=== PATIENT | female | born 1965 | race Caucasian/White ===

== ENCOUNTER 2019-01-18 16:06 | Emergency (ER) | payer MEDICARE, SELFPAY ==
[2019-01-18] VITALS (27 sets, daily range): BP systolic 108–131; BP diastolic 63–89; PULSE 67–98; RESP 15–26; TEMP 36.6–37.3; O2SAT 95–99
--- NOTE | 2019-01-18 16:29 | W.ED.GENAD ---
Discharge Plan Disposition Patient Disposition: HOME Condition: Stable Discharge Details Chief Complaint: Palpitatns Clinical Impression: Paroxysmal supraventricular tachycardia Primary Care Provider: Damian Lindsey ED Provider: Teri Hopkins Home Meds and New Rx's Prescriptions: New diltiazem HCl 120 mg capsule,extended release 12 hr 120 mg PO QAM Qty: 14 RF: 0 Continued diltiazem HCl 120 MG capsule,extended release 24hr 240 mg PO DAILY Qty: 30 RF: 5 diltiazem HCl 30 MG tablet 30 mg PO PRN MDD 240 Qty: 30 RF: 3 gabapentin 400 MG capsule 400 mg PO DAILY RF: 0 venlafaxine 100 MG tablet 150 mg PO DAILY RF: 0 Discharge Instructions Instructions: Diltiazem (By mouth), Supraventricular Tachycardia (ED) Additional Instructions: Encourage hydration. Please continue with medications as previously prescribed. Begin the morning dose of Diltiazem as prescribed. Please follow up with cardiology in the next week for reevaluation and to discuss further care of your SVT as well as possible stress test. If you develop chest pain, difficulty breathing, shortness of breath or other new/worsening symptoms please seek care urgently once again. Referrals: Julius Marquez MD [MD CONSULTING PHYSICIAN] - Damian Lindsey NP [Primary Care Provider] - Discharge Data Discharge Date/Time-TO BE ENTERED AT DEPARTURE: 01/18/19 20:27 Medical Decision Making Patient is a 53-year-old female with history of paroxysmal SVT presenting today, accompanied by her , with chief complaint of palpitations. She reports the palpitations began at 2:00. States that she has been working outside in heat and went in to get something to drink. States that she opened the refrigerator when she has sudden onset of palpitations, feeling of racing heart, lightheadedness. States she took to diltiazem which typically works well for her when she has breakthrough SVT. However, despite this, she reports that her chest tightness has persisted. States that the feeling of palpitations have since resolved. Feels that her neck is stiff. Denies any recent illness. Patient was last seen in August 2016 by support services coordinator. She reports at that time they had discussed ablation but as she was undergoing treatment for colon cancer, decided to hold off at that time. She reports that she has been experiencing episodes of palpitations approximately twice per week for the past few months. Has not yet contacted her primary care or support services coordinator. EKG reviewed by Dr. Holman. NSR, rate 98 with no ischemic changes noted. Patient given aspirin Chest x-rays reviewed by radiologist and they advised no acute findings. No notable incidentals. Labs reviewed, notable for a potassium of 3.1. BUN is slightly elevated. Patient is receiving hydration. Will replenish potassium. Plan to repeat troponin. Consulted with Dr. Patino regarding the patient's breakthrough SVT. If patient would need a repeat Holter monitor and he advised against this. He advised that in addition to the patient's to 40 mg nightly dosing of diltiazem we had another 120 on top of this in the morning. Discussed this plan with the patient was in agreement. Plan for 3-hour troponin and repeat EKG Repeat troponin 0.04. while slightly elevated, this is still within normal limits. Discussed case with Dr. Gillis. Discussed symptoms, Dr. Marquez's recommendations and change in troponin. He advised this is likely d/t stress from episode of SVT. Given length of time since onset, advised no repeat troponin at this time. Ag is seen by cardiology. ADvised prompt f/u with them and +/- of stress testing at their discretion. Will prescribed 120mg of Diltiazem as advised by cardiology. Patient is able to return with recurrent/worsneing symptoms. She is feeling well at this time. We discussed red flags that should prompt urgent evaluation once again. All of her questions and concerns were addressed, she is in agreement with this plan. [facility] General Mode of arrival: ambulatory. Date/Time Provider Initiated Documentation: 01/18/19 16:29. Limitations to Documentation: no limitations. Information obtained by: patient and family (accompanied by ). History of Present Illness 53 year old F presents to the emergency department with the chief complaint of palpitations, described as mild, Quality is described as other (chest tightness, indicates anterior chest), and is localized to the chest. Patient reports no radiation. Patient started experiencing this hour(s) (1400) and it has been constant. No relieving factors improve symptom(s), No exacerbating factors reported . Patient notes chest pain (tightness, palpitations have resolved); denies confusion, cough, diaphoresis, fever/chills, headaches, malaise, nausea/vomiting, rash, shortness of breath, syncope (patient had experienced presyncope when symptoms initially began) and weakness. Patient did receive the following treatments prior to arrival, other (diltiazem x 2) Related Data Home Medications Medication Instructions Recorded Confirmed gabapentin 400 mg PO DAILY 10/26/14 01/18/19 venlafaxine 150 mg PO DAILY 10/26/14 01/18/19 diltiazem HCl 240 mg PO DAILY #30 tab-cap 12/22/15 01/18/19 diltiazem HCl 30 mg PO PRN #30 tab-cap MDD 240 10/31/17 01/18/19 diltiazem HCl 120 mg PO QAM #14 cap 01/18/19 Previous Rx's Medication Instructions Recorded diltiazem HCl 30 mg PO PRN #30 tab-cap MDD 240 10/31/17 diltiazem HCl 120 mg PO QAM #14 cap 01/18/19 Allergies Allergy/AdvReac Type Severity Reaction Status Date / Time Sulfa (Sulfonamide Allergy Intermediate Hives Unverified 01/18/19 16:24 Antibiotics) metoprolol AdvReac fatigue Unverified 01/18/19 16:24 General Stated Complaint: Palpitatns GARCIA: 2 Review of Systems Constitutional Reports as per HPI, Denies chills, Denies fever(s), Denies headache(s), Denies lethargy and Denies poor appetite Eyes Denies change in vision ENT Denies dizziness and Denies headache(s) Cardiovascular Reports as per HPI, Reports chest pain (constant chest tightness since onset of symptoms), Denies chest pain with activity, Denies syncope (had experienced presyncope when symptoms were at max), Reports rapid heart rate, Denies pedal edema, Reports irregular heart rhythm, Denies lightheadedness, Reports radiating jaw, neck or arm pain (feels that her neck is stiff), Reports palpitations, Denies dyspnea and Denies dyspnea on exertion Respiratory Reports as per HPI, Denies chest congestion, Denies cough, Denies pain on inspiration, Denies pain with cough, Denies dyspnea, Denies dyspnea on exertion and Denies wheezing Gastrointestinal Reports as per HPI, Denies abdominal pain, Denies diarrhea, Denies nausea and Denies vomiting Musculoskeletal Reports as per HPI and Denies back pain Integumentary/Breasts Reports as per HPI and Denies rash Neurologic Reports as per HPI, Denies dizziness, Denies syncope (had experienced presyncope when symptoms were at max) and Denies headache(s) Endocrine Reports palpitations Allergic/Immunologic Denies wheezing [facility] Social History Smoking/Tobacco Use Status: Former Tobacco Use Alcohol Intake: never Drug use: Never Do you feel safe at home: Yes Do you feel safe in your relationship?: Yes Exam Const General: cooperative, healthy appearing, comfortable, no acute distress and well developed Nutritional Appearance: average body habitus and well nourished Orientation: alert, awake and oriented x3 HENMT Head: normal to inspection Ears: hearing grossly normal bilaterally Mouth: moist mucous membranes Chest Chest: normal inspection of the chest, normal palpation of entire chest wall and no crepitus Resp Effort & Inspection: normal respiratory effort, able to speak in complete sentences and no respiratory distress Auscultation: clear to auscultation bilaterally, no rales, no rhonchi and no wheezes Cardio Rate: regular rate Rhythm: regular rhythm Heart Sounds: S1 normal and S2 normal GI Inspection: normal to inspection, no edema and non-distended Palpation: soft, no hepatosplenomegaly, not firm, no guarding, not rigid and nontender Auscultation: normal bowel sounds Back/Spine/Pelvis Back: no CVA tenderness Thoracic/Lumbar Spine: thoracic and lumbar spine normal to inspection Skin General skin exam: no rashes or lesions noted Trauma: no lacerations or abrasions Neuro General: alert, awake and oriented x3 Cognition: normal cognition Speech: speech normal Gait: normal gait Extrem General: normal to inspection, normal capillary refill, no pedal edema, no calf tenderness and normal gait Psych Appearance: grossly normal and well kempt Mental Status: mental status grossly normal Speech and Movement: speech and movement normal Course Vital Signs Temperature 37.3 C 01/18/19 16:12 Pulse 86 01/18/19 16:12 Respiratory Rate 25 H 01/18/19 16:12 Blood Pressure 131/78 01/18/19 16:12 Pulse Oximetry 97 01/18/19 16:12 Temperature 37.3 C 01/18/19 16:12 Temperature Source Skin 01/18/19 16:12 Pulse 86 01/18/19 16:12 Respiratory Rate 25 H 01/18/19 16:12 Respiratory Effort 01/18/19 16:27 Blood Pressure 131/78 01/18/19 16:12 Blood Pressure Position Supine 01/18/19 16:12 Pulse Oximetry 97 01/18/19 16:12 Oxygen Delivery Method Room Air 01/18/19 16:12 Oxygen Flow Rate 0 01/18/19 16:12 Pain Level 7 01/18/19 16:12
--- NOTE | 2019-01-18 16:47 | DI.RAD_ITS ---
SYMPTOM/DIAGNOSIS: CHEST TIGHTNESS, PALPITATIONS CHEST: PA and lateral. Comparison 10/26/14 The heart is normal in size. The lungs are clear. The mediastinal structures and pleura appear intact. CONCLUSION: Normal chest.
[2019-01-18] MEDS: Aspirin 325 MG TAB PO (16:53)
[2019-01-18] MEDS: Normal Saline Flush 10 ML SYR IVP (16:54)
[2019-01-18] MEDS: Normal Saline 1,000 ML 1000 ML IV (16:54)
[2019-01-18 16:57] LABS: Abs Immature Grans 0.01 k/cumm (0.0-0.09); Absolute Basophil Count 0.08 k/cumm (0.0-0.2); Absolute Eosinophil Count 0.21 k/cumm (0.0-0.7); Absolute Lymphocyte Count 2.04 k/cumm (1.2-3.4); Absolute Monocyte Count 0.53 k/cumm (0.11-0.7); Absolute Neutrophil Count 4.18 k/cumm (1.2-6.7); Basophils % 1.1; HCT 40.5 % (36.0-46.0); HGB 13.7 g/dL (12.0-15.5); Immature Grans % 0.1; Lymphocytes % 28.9; Mean Corp. HGB Concentration 33.8 g/dL (32.0-36.0); Mean Corpuscular Hemoglobin 29.3 pg (27.0-33.0); Mean Corpuscular Volume 86.7 fL (80-95); Mean Platelet Volume 11.9 fL (8.0-11.0); Monocytes % 7.5; Neutrophils % 59.4; Platelet Count 224 x1000/uL (130-400); RBC 4.67 m/cumm (4.00-5.20); RBC Distribution Width 13.3 % (11.7-14.6); White Blood Cell Count 7.05 k/cumm (4.4-10.8)
[2019-01-18 17:19] LABS: PTT Activated 24.6 sec (21.0-31.4); Prothrombin Time 10.1 sec (9.3-11.0)
[2019-01-18 17:22] LABS: ALT 36 U/L (12-78); AST 24 U/L (15-37); Albumin 3.6 g/dL (3.4-5.0); Alkaline Phosphatase 100 U/L (46-116); BUN 19 mg/dL (7-18); Bilirubin, Total 0.4 mg/dL (0.2-1.0); Calcium 9.5 mg/dL (8.5-10.1); Chloride 105 mmol/L (98-107); Glucose 82 mg/dL (70-100); Magnesium 1.9 mg/dL (1.8-2.4); Potassium 3.1 mmol/L (3.5-5.1); Sodium 142 mmol/L (136-145); TSH 3.45 uIU/mL (0.358-3.74); Total Protein 7.3 g/dL (6.4-8.2); Troponin I < 0.02 ng/mL (0.00-0.06)
--- NOTE | 2019-01-18 17:27 | ED.GENADUL_ITS ---
Discharge Plan Disposition Patient Disposition: HOME Condition: Stable Discharge Details Chief Complaint: Palpitatns Clinical Impression: Paroxysmal supraventricular tachycardia Primary Care Provider: Damian Lindsey ED Provider: Teri Hopkins Home Meds and New Rx's Prescriptions: New diltiazem HCl 120 mg capsule,extended release 12 hr 120 mg PO QAM Qty: 14 RF: 0 Continued diltiazem HCl 120 MG capsule,extended release 24hr 240 mg PO DAILY Qty: 30 RF: 5 diltiazem HCl 30 MG tablet 30 mg PO PRN MDD 240 Qty: 30 RF: 3 gabapentin 400 MG capsule 400 mg PO DAILY RF: 0 venlafaxine 100 MG tablet 150 mg PO DAILY RF: 0 Discharge Instructions Instructions: Diltiazem (By mouth), Supraventricular Tachycardia (ED) Additional Instructions: Encourage hydration. Please continue with medications as previously prescribed. Begin the morning dose of Diltiazem as prescribed. Please follow up with cardiology in the next week for reevaluation and to discuss further care of your SVT as well as possible stress test. If you develop chest pain, difficulty breathing, shortness of breath or other new/worsening symptoms please seek care urgently once again. Referrals: Julius Marquez MD [MD CONSULTING PHYSICIAN] - Damian Lindsey NP [Primary Care Provider] - Discharge Data Discharge Date/Time-TO BE ENTERED AT DEPARTURE: 01/18/19 20:27 Medical Decision Making Patient is a 53-year-old female with history of paroxysmal SVT presenting today, accompanied by her , with chief complaint of palpitations. She reports the palpitations began at 2:00. States that she has been working outside in heat and went in to get something to drink. States that she opened the refrigerator when she has sudden onset of palpitations, feeling of racing heart, lightheadedness. States she took to diltiazem which typically works well for her when she has breakthrough SVT. However, despite this, she reports that her chest tightness has persisted. States that the feeling of palpitations have since resolved. Feels that her neck is stiff. Denies any recent illness. Patient was last seen in August 2016 by paymaster of purses. She reports at that time they had discussed ablation but as she was undergoing treatment for colon cancer, decided to hold off at that time. She reports that she has been experiencing episodes of palpitations approximately twice per week for the past few months. Has not yet contacted her primary care or paymaster of purses. EKG reviewed by Dr. Holman. NSR, rate 98 with no ischemic changes noted. Patient given aspirin Chest x-rays reviewed by radiologist and they advised no acute findings. No notable incidentals. Labs reviewed, notable for a potassium of 3.1. BUN is slightly elevated. Patient is receiving hydration. Will replenish potassium. Plan to repeat troponin. Consulted with Dr. Patino regarding the patient's breakthrough SVT. If patient would need a repeat Holter monitor and he advised against this. He advised that in addition to the patient's to 40 mg nightly dosing of diltiazem we had another 120 on top of this in the morning. Discussed this plan with the patient was in agreement. Plan for 3-hour troponin and repeat EKG Repeat troponin 0.04. while slightly elevated, this is still within normal limits. Discussed case with Dr. Gillis. Discussed symptoms, Dr. Marquez's rec ommendations and change in troponin. He advised this is likely d/t stress from episode of SVT. Given length of time since onset, advised no repeat troponin at this time. Ag is seen by cardiology. ADvised prompt f/u with them and +/- of stress testing at their discretion. Will prescribed 120mg of Diltiazem as advised by cardiology. Patient is able to return with recurrent/worsneing symptoms. She is feeling well at this time. We discussed red flags that should prompt urgent evaluation once again. All of her questions and concerns were addressed, she is in agreement with this plan. [facility] General Mode of arrival: ambulatory . Date/Time Provider Initiated Documentation: 01/18/19 16:29 . Limitations to Documentation: no limitations . Information obtained by: patient and family (accompanied by ) . History of Present Illness 53 year old F presents to the emergency department with the chief complaint of palpitations, described as mild, Quality is described as other (chest tightness, indicates anterior chest), and is localized to the chest. Patient reports no radiation. Patient started experiencing this hour(s) (1400) and it has been constant. No relieving factors improve symptom(s), No exacerbating factors reported . Patient notes chest pain (tightness, palpitations have resolved); denies confusion, cough, diaphoresis, fever/chills, headaches, malaise, nausea/vomiting, rash, shortness of breath, syncope (patient had experienced presyncope when symptoms initially began) and weakness. Patient did receive the following treatments prior to arrival, other (diltiazem x 2) Related Data Home Medications Medication Instructions Recorded Confirmed gabapentin 400 mg PO DAILY 10/26/14 01/18/19 venlafaxine 150 mg PO DAILY 10/26/14 01/18/19 diltiazem HCl 240 mg PO DAILY #30 tab-cap 12/22/15 01/18/19 diltiazem HCl 30 mg PO PRN #30 tab-cap MDD 240 10/31/17 01/18/19 diltiazem HCl 120 mg PO QAM #14 cap 01/18/19 Previous Rx's Medication Instructions Recorded diltiazem HCl 30 mg PO PRN #30 tab-cap MDD 240 10/31/17 diltiazem HCl 120 mg PO QAM #14 cap 01/18/19 Allergies Allergy/AdvReac Type Severity Reaction Status Date / Time Sulfa (Sulfonamide Allergy Intermediate Hives Unverified 01/18/19 16:24 Antibiotics) metoprolol AdvReac fatigue Unverified 01/18/19 16:24 General Stated Complaint: Palpitatns GARCIA: 2 Review of Systems Constitutional Reports as per HPI, Denies chills, Denies fever(s), Denies headache(s), Denies lethargy and Denies poor appetite Eyes Denies change in vision ENT Denies dizziness and Denies headache(s) Cardiovascular Reports as per HPI, Reports chest pain (constant chest tightness since onset of symptoms), Denies chest pain with activity, Denies syncope (had experienced presyncope when symptoms were at max), Reports rapid heart rate, Denies pedal edema, Reports irregular heart rhythm, Denies lightheadedness, Reports radiating jaw, neck or arm pain (feels that her neck is stiff), Reports palpitations, Denies dyspnea and Denies dyspnea on exertion Respiratory Reports as per HPI, Denies chest congestion, Denies cough, Denies pain on inspiration, Denies pain with cough, Denies dyspnea, Denies dyspnea on exertion and Denies wheezing Gastrointestinal Reports as per HPI, Denies abdominal pain, Denies diarrhea, Denies nausea and Denies vomiting Musculoskeletal Reports as per HPI and Denies back pain Integumentary/Breasts Reports as per HPI and Denies rash Neurologic Reports as per HPI, Denies dizziness, Denies syncope (had experienced presyncope when symptoms were at max) and Denies headache(s) Endocrine Reports palpitations Allergic/Immunologic Denies wheezing [facility] Social History Smoking/Tobacco Use Status: Former Tobacco Use Alcohol Intake: never Drug use: Never Do you feel safe at home: Yes Do you feel safe in your relationship?: Yes Exam Const General: cooperative, healthy appearing, comfortable, no acute distress and well developed Nutritional Appearance: average body habitus and well nourished Orientation: alert, awake and oriented x3 HENMT Head: normal to inspection Ears: hearing grossly normal bilaterally Mouth: moist mucous membranes Chest Chest: normal inspection of the chest, normal palpation of entire chest wall and no crepitus Resp Effort & Inspection: normal respiratory effort, able to speak in complete sentences and no respiratory distress Auscultation: clear to auscultation bilaterally, no rales, no rhonchi and no wheezes Cardio Rate: regular rate Rhythm: regular rhythm Heart Sounds: S1 normal and S2 normal GI Inspection: normal to inspection, no edema and non-distended Palpation: soft, no hepatosplenomegaly, not firm, no guarding, not rigid and nontender Auscultation: normal bowel sounds Back/Spine/Pelvis Back: no CVA tenderness Thoracic/Lumbar Spine: thoracic and lumbar spine normal to inspection Skin General skin exam: no rashes or lesions noted Trauma: no lacerations or abrasions Neuro General: alert, awake and oriented x3 Cognition: normal cognition Speech: speech normal Gait: normal gait Extrem General: normal to inspection, normal capillary refill, no pedal edema, no calf tenderness and normal gait Psych Appearance: grossly normal and well kempt Mental Status: mental status grossly normal Speech and Movement: speech and movement normal Course Vital Signs Temperature 37.3 C 01/18/19 16:12 Pulse 86 01/18/19 16:12 Respiratory Rate 25 H 01/18/19 16:12 Blood Pressure 131/78 01/18/19 16:12 Pulse Oximetry 97 01/18/19 16:12 Temperature 37.3 C 01/18/19 16:12 Temperature Source Skin 01/18/19 16:12 Pulse 86 01/18/19 16:12 Respiratory Rate 25 H 01/18/19 16:12 Respiratory Effort 01/18/19 16:27 Blood Pressure 131/78 01/18/19 16:12 Blood Pressure Position Supine 01/18/19 16:12 Pulse Oximetry 97 01/18/19 16:12 Oxygen Delivery Method Room Air 01/18/19 16:12 Oxygen Flow Rate 0 01/18/19 16:12 Pain Level 7 01/18/19 16:12
--- NOTE | 2019-01-18 17:28 | DI.VRAD_ITS ---
EXAM: XR Chest, 2 Views EXAM DATE/TIME: 01/18/2019 4:48 PM CLINICAL HISTORY: 53 years old, female; Signs and symptoms; Other: Palpitations TECHNIQUE: Imaging protocol: XR of the chest, 2 views. COMPARISON: CR ABD FLAT UPRIGHT PA CHEST 10/26/2014 11:13 PM FINDINGS: Lungs: Unremarkable. No consolidation. Pleural space: Unremarkable. No pleural effusion. No pneumothorax. Heart/Mediastinum: Unremarkable. No cardiomegaly. Bones/joints: Unremarkable. IMPRESSION: No acute findings. Dictated and Authenticated by: Oleg Luther MD. Ordering:VICENTE Williamson MD
[2019-01-18 19:25] LABS: Troponin I 0.04 ng/mL (0.00-0.06)
[2019-01-18] MEDS: Potassium Chloride 20 MEQ TABCR 40 MEQ PO (19:35)
[2019-01-18] MEDS: dilTIAZem CD 120 MG CAPCR PO (20:22)
== END 2019-01-18 20:27 | disposition home or self-care (01) ==
PROVIDERS: Emergency Provider Physician Assistant; PCP Nurse Practitioner Family
DX: I47.1 Supraventricular tachycardia (principal); Z87.891 Personal history of nicotine dependence
CPT/HCPCS: 36415; 80053; 93005; 96360; 96361; 99285; 71046; 83735; 84443; 84484; 85025; 85610; 85730; 93010

== ENCOUNTER → 2019-01-28 11:21 | Outpatient (BNVA) | payer MEDICARE, SELFPAY | PROVIDERS: PCP Nurse Practitioner Family; Visit Provider Student in an Organized Health Care Education/Training Program | DX: I47.1 Supraventricular tachycardia (principal) | CPT/HCPCS: 99214 ==

== ENCOUNTER 2019-01-30 03:43 | Outpatient (CLI) | payer MEDICARE, SELFPAY ==
--- NOTE | 2019-02-19 06:32 | ZIOP_ITS ---
ZIO PATCH DATE OF DICTATION February 18, 2019 STUDY INDICATION Paroxysmal tachycardia. REQUESTING PROVIDER Damian Lindsey NP FINDINGS The patient was monitored for 12 days and 15 hours. The predominant underlying rhythm was sinus rhythm. Average heart rate in sinus rhythm 79 beats per minute, range 52 to 147 beats per minute. There was rare ectopy. There were two episodes of supraventricular tachycardia, average heart rate 50 to 152 beats per minute, range 121 to 222 beats per minute. The longest episode lasted 3 hours and 8 minutes with an average heart rate of 175 beats per minute. There were no pauses greater than 3 seconds. There was no higher degree block. There were 5 patient events. Two events correlated with SVT, all other events did not correlate with arrhythmias. FINAL INTERPRETATION Symptomatic paroxysmal supraventricular tachycardia. Julius Marquez M.D. ALEXSI/mariano T - 02/19/2019
== END 2019-01-30 04:03 ==
PROVIDERS: PCP Nurse Practitioner Family; Visit Provider Student in an Organized Health Care Education/Training Program
DX: I47.1 Supraventricular tachycardia (principal)
CPT/HCPCS: 0296T

== ENCOUNTER 2019-02-18 19:17 | Outpatient (REF) | payer MEDICARE, SELFPAY ==
[2019-02-18 19:25] LABS: BUN 12 mg/dL (7-18); CREATININE 0.74 mg/dL (0.55-1.02); Calcium 9.2 mg/dL (8.5-10.1); Chloride 105 mmol/L (98-107); Glucose 79 mg/dL (70-100); Potassium 3.5 mmol/L (3.5-5.1); Sodium 142 mmol/L (136-145)
[2019-02-18 19:41] LABS: HCT 39.7 % (36.0-46.0); HGB 13.3 g/dL (12.0-15.5); Mean Corp. HGB Concentration 33.5 g/dL (32.0-36.0); Mean Corpuscular Hemoglobin 29.2 pg (27.0-33.0); Mean Corpuscular Volume 87.1 fL (80-95); Mean Platelet Volume 12.4 fL (8.0-11.0); Platelet Count 210 x1000/uL (130-400); RBC 4.56 m/cumm (4.00-5.20); RBC Distribution Width 13.6 % (11.7-14.6)
[2019-02-20 10:10] LABS: CEA 0.6 ng/ml
== END 2019-02-18 19:37 ==
LOC: NCHCN 19:17
PROVIDERS: PCP Nurse Practitioner Family; Visit Provider Family Medicine
DX: C18.9 Malignant neoplasm of colon, unspecified (principal)
CPT/HCPCS: 0298T; 80048; 85027; 82378

== ENCOUNTER 2019-02-19 11:12 | Outpatient (REF) | payer MEDICARE, SELFPAY ==
[2019-02-20 10:39] LABS: Campylobacter PCR SEE COMMENTS; Salmonella PCR SEE COMMENTS; Shiga Toxin PCR SEE COMMENTS; Shigella/Enteroinvasive Ecoli SEE COMMENTS
== END 2019-02-19 11:32 ==
LOC: NCHCN 11:12
PROVIDERS: PCP Nurse Practitioner Family; Visit Provider Family Medicine
DX: R19.7 Diarrhea, unspecified (principal); C18.9 Malignant neoplasm of colon, unspecified
CPT/HCPCS: 87329; 87505; 83630; 87324

== ENCOUNTER 2019-03-05 00:40 | Outpatient (CLI) | payer MEDICARE, SELFPAY ==
--- NOTE | 2019-03-05 12:00 | DI.MAMMO_ITS ---
SYMPTOM/DIAGNOSIS: SCREENING, PREVENTATIVE CARE Z00.00 BILATERAL SCREENING MAMMOGRAM: Mammograms were interpreted according to the usual protocol including computer analysis with CAD system, tomosynthesis and C view imaging. Comparison is made with exams from 2011 and 2016. The breasts are composed of scattered fibroglandular densities, breast density category B. No suspicious masses or suspicious microcalcifications are seen. There has been no significant change. IMPRESSION: Category 1, negative mammogram. Yearly screening mammography is recommended. Breast density category B. SA ASSESSMENT OF FINDINGS: Negative. Category 1. Patient will receive a letter notifying them of these results. BI-RADS category B. There are scattered areas of fibroglandular density.
== END 2019-03-05 01:00 ==
PROVIDERS: PCP Nurse Practitioner Family; Visit Provider Family Medicine
DX: Z12.31 Encounter for screening mammogram for malignant neoplasm of breast (principal)
CPT/HCPCS: 77063; 77067

== ENCOUNTER 2019-03-13 12:49 | Outpatient (REF) | payer MEDICARE, SELFPAY ==
[2019-03-15 20:09] LABS: Result Positive
[2019-03-16 09:51] LABS: Specimen Description Feces
== END 2019-03-13 13:09 ==
LOC: NCHCN 12:49
PROVIDERS: PCP Nurse Practitioner Family; Visit Provider Nurse Practitioner Family
DX: R19.7 Diarrhea, unspecified (principal)
CPT/HCPCS: 87324; 87798

== ENCOUNTER 2019-04-07 17:35 | Outpatient (REF) | payer MEDICARE, SELFPAY | END 2019-04-07 17:55 | LOC: NCHCN 17:35 | PROVIDERS: PCP Nurse Practitioner Family; Visit Provider Nurse Practitioner Family | DX: R69 Illness, unspecified (principal) | CPT/HCPCS: 87529; 87798 ==

== ENCOUNTER 2019-05-09 15:29 | Outpatient (REF) | payer MEDICARE, SELFPAY | END 2019-05-09 15:49 | LOC: NCHCN 15:29 | PROVIDERS: PCP Nurse Practitioner Family; Visit Provider Nurse Practitioner Family | DX: A04.72 Enterocolitis due to Clostridium difficile, not specified as recurrent (principal) | CPT/HCPCS: 87324 ==

== ENCOUNTER 2019-05-25 13:06 | Outpatient (REF) | payer MEDICARE, SELFPAY | END 2019-05-25 13:26 | LOC: LBN 13:06 | PROVIDERS: PCP Nurse Practitioner Family; Visit Provider Nurse Practitioner Family | DX: A04.72 Enterocolitis due to Clostridium difficile, not specified as recurrent (principal) | CPT/HCPCS: 87324 ==

== ENCOUNTER 2021-06-16 19:52 | Outpatient (REF) | payer MEDICARE, SELFPAY ==
[2021-06-19 09:42] LABS: CEA 0.7 ng/mL (See Note)
== END 2021-06-16 19:53 | disposition home or self-care (01) ==
LOC: NCHCN 19:52
PROVIDERS: PCP Nurse Practitioner Family; Visit Provider Nurse Practitioner Family
DX: C18.9 Malignant neoplasm of colon, unspecified (principal)
CPT/HCPCS: 82378

== ENCOUNTER 2021-10-11 00:42 | Outpatient (CLI) | payer MEDICARE, SELFPAY ==
--- NOTE | 2021-10-11 | DI.MAMMO_ITS ---
Exam(s) MAMMO SCREENING EXAM: MAMMO SCREENING CLINICAL HISTORY: SCREENING, Z12.39 TECHNIQUE: Mammograms were interpreted according to the usual protocol including computer analysis w [employer] CAD system, tomosynthesis and C-view imaging. COMPARISON: FINDINGS: The breasts are of moderate density with fairly symmetrical distribution of fibroglandular tissue. N o dominant mass or clumped microcalcification is identified in either breast. Current examination is compared with previous examinations including February 2019 and there has been no gross interval change in appearance in comparison with prior studies. IMPRESSION: No specific evidence of malignancy at this time. Routine screening examinations are suggested at yea rly intervals due to the family history of breast carcinoma. BI-RADS Category 1 - Negative Breast Density - Category B - Scattered areas of fibroglandular density
== END 2021-10-11 01:02 ==
PROVIDERS: PCP Nurse Practitioner Family; Visit Provider Nurse Practitioner Family
DX: Z12.31 Encounter for screening mammogram for malignant neoplasm of breast (principal)
CPT/HCPCS: 77063; 77067

== ENCOUNTER 2021-12-26 17:41 | Outpatient (REF) | payer MEDICARE, SELFPAY ==
[2021-12-26 18:49] LABS: Anion Gap 10.3 mmol/L (3-11); BUN 11 mg/dL (7-18); CO2 29.7 mmol/L (21.0-32.0); CREATININE 0.8 mg/dL (0.55-1.02); Chloride 103 mmol/L (98-107); Glucose 90 mg/dL (74-106); Potassium 3.7 mmol/L (3.5-5.1); Sodium 143 mmol/L (136-145)
== END 2021-12-26 17:42 | disposition home or self-care (01) ==
LOC: NCHCN 17:41
PROVIDERS: PCP Nurse Practitioner Family; Visit Provider Family Medicine
DX: I10 Essential (primary) hypertension (principal)
CPT/HCPCS: 80048; 84439; 84443

== ENCOUNTER 2022-04-15 12:10 | Emergency (ER) | payer MEDICARE, MEDICAID, SELFPAY ==
[2022-04-15] VITALS (15 sets, daily range): BP systolic 132–171; BP diastolic 79–126; PULSE 80–185; RESP 16–27; TEMP 36.8; O2SAT 95–99
--- NOTE | 2022-04-15 12:00 | RT.EKG_ITS ---
APPROVED REPORT Exam: Resting ECG Reason for Exam: chest pain Patient Location: E HR:175 bpm ECG Measurements Heart Rate 175 AXIS NE 55 P 0 QRSd 97 QRS 48 QT 276 T 222 QTc 473 Conclusion Supraventricular tachycardia...V-rate>(220-age), QRSd<120 Repolarization abnormality, prob rate related...ST dep, T neg, tachycardia
--- NOTE | 2022-04-15 12:15 | RT.EKG_ITS ---
APPROVED REPORT Exam: Resting ECG Reason for Exam: palpitations Patient Location: E HR:82 bpm ECG Measurements Heart Rate 82 AXIS WV 145 P 39 QRSd 93 QRS 40 QT 367 T 35 QTc 430 Conclusion Sinus rhythm...normal P axis, V-rate 60- 99
--- NOTE | 2022-04-15 12:25 | W.ED.GENAD ---
Discharge Plan Disposition Patient Disposition: HOME Condition: Improving Discharge Details Clinical Impression: Paroxysmal supraventricular tachycardia Primary Care Provider: Damian Lindsey ED Provider: Chau Gillis Home Meds and New Rx's Prescriptions: Continued diltiazem HCl 120 mg capsule,extended release 12 hr 120 mg PO QAM Qty: 90 3RF gabapentin 400 MG capsule 400 mg PO DAILY venlafaxine 100 MG tablet 150 mg PO DAILY No Action diltiazem HCl 30 MG tablet 30 mg PO PRN MDD 240 Qty: 30 3RF Rx Instructions: Take 1-2 tabs if HR greater than 140 bpm for more than 10 min diltiazem HCl 120 mg capsule,extended release 24hr 240 mg PO HS Qty: 30 Discharge Instructions Instructions: Supraventricular Tachycardia (ED) Additional Instructions: So we will ask our care managers to make a follow-up for you it [facility] cardiology. I recommend you restart the diltiazem at 120 mg/day. Return for chest discomfort, palpitations, or any other acute concerns. Your magnesium was slightly low today and was supplemented in the ER. Your liver enzymes were discretely elevated today and should be rechecked by your primary care physician. Medical Decision Making 57-year-old female with a history of SVT for which she underwent successful ablation approximately 2 years ago. She previously had taken diltiazem as needed and no longer is on this medication. She felt palpitations while driving approximate 2 hours prior to presentation. She had weakness but no syncope and no significant chest discomfort. She arrives in a rapid regular narrow complex rhythm consistent with SVT with a rate approximately 180. She is mentating without without difficulty in no acute distress. The patient was placed on the phototypesetting equipment monitor, EKG confirms SVT with a rate of approximate 180. Patient was consented for use of adenosine for chemical cardioversion. Patient responded to 6 mg of adenosine with spiritism of normal sinus rhythm. She had previously ceased taking her diltiazem daily due to successful ablation. She was given 10 mg of diltiazem IV following the administration of adenosine and conversion to normal sinus rhythm. Patient's lab reveals white count 7, hematocrit 42, platelets 200. Sodium 142 potassium 3.5, chloride 103, bicarb 26, BUN 14 creatinine 1.0, AST 102, ALT 149. Troponin negative. Patient observed and remained in normal sinus rhythm. I will have her restart her daily diltiazem at 120 mg. We will arrange a follow-up for her at [facility] cardiology [facility] General Mode of arrival: ambulatory. Date/Time Provider Initiated Documentation: 04/15/22 12:13. Limitations to Documentation: no limitations. Information obtained by: patient. History of Present Illness 57 year old F presents to the emergency department with the chief complaint of Palpitations approximately 2 hours ago while driving, described as moderate, and is localized to the chest. Patient reports no radiation. Patient started experiencing this hour(s) and it has been constant. No relieving factors improve symptom(s), No exacerbating factors reported . Patient notes weakness. Patient did receive the following treatments prior to arrival, none Related Data Home Medications Medication Instructions Recorded Confirmed gabapentin 400 mg capsule 400 mg PO DAILY 10/26/14 01/28/19 venlafaxine 100 mg tablet 150 mg PO DAILY 10/26/14 01/28/19 diltiazem HCl 30 mg tablet 30 mg PO PRN #30 tab-caps 10/31/17 01/28/19 diltiazem HCl 120 mg 120 mg PO QAM #90 caps 01/28/19 01/28/19 capsule,extended release 12 hr diltiazem HCl 120 mg 240 mg PO HS #30 tab-caps 01/28/19 01/28/19 capsule,extended release 24 hr Previous Rx's Medication Instructions Recorded diltiazem HCl 30 mg tablet 30 mg PO PRN #30 tab-caps 10/31/17 diltiazem HCl 120 mg 120 mg PO QAM #90 caps 01/28/19 capsule,extended release 12 hr Allergies Allergy/AdvReac Type Severity Reaction Status Date / Time Sulfa (Sulfonamide Allergy Intermediate Hives Unverified 01/28/19 11:35 Antibiotics) metoprolol AdvReac fatigue Unverified 01/28/19 11:35 General Stated Complaint: Chest Pain GARCIA: 2 Review of Systems Narrative: Previously had ablation. No longer taking diltiazem. Recently well. 7 systems were reviewed [facility] All Active Problems (Updated 04/15/22 @ 14:46 by Chau Gillis MD) Paroxysmal supraventricular tachycardia (Acute) Social History Smoking/Tobacco Use Status: Former Tobacco Use Quit Date: 08/12/98 Smoking risk assessment performed?: Yes Alcohol Intake: never Drug use: Never Do you feel safe at home: Yes Do you feel safe in your relationship?: Yes Exam Narrative Exam Narrative: GEN: awake, alert, oriented 3. Pleasant, well groomed, interactive. HEAD: Normocephalic, atraumatic ENT: Mucous membranes moist, oropharynx unremarkable, External ear exam unremarkable EYES: PERRL, EOMI NECK: Full ROM, no [place], no menigismus CHEST/RESP: Nontender, clear to auscultation bilateral, no wheeze/rhonchi/rales CARDIOVASCULAR: Regular and tachycardia, no murmur, rub sheri. 2+ Rad pulse bilateral ABDOMEN: Soft, nontender, no mass. +Bowel sounds EXT: Full ROM, no edema, no rash Neuro: Grossly normal neurologic exam, conversant, interactive. Psych: Speech fluent, thoughts congruent, affect normal Course Vital Signs Vital signs: Vital Signs Temperature 36.8 C 04/15/22 12:16 Pulse 180 H 04/15/22 12:16 Respiratory Rate 18 04/15/22 12:16 Blood Pressure 138/115 H 04/15/22 12:16 Pulse Oximetry 99 04/15/22 12:16 Temperature 36.8 C 04/15/22 12:16 Temperature Source Temporal Artery Scan 04/15/22 12:16 Pulse 180 H 04/15/22 12:16 Respiratory Rate 18 04/15/22 12:16 Blood Pressure 138/115 H 04/15/22 12:16 Blood Pressure Position Sitting 04/15/22 12:16 Pulse Oximetry 99 04/15/22 12:16 Oxygen Delivery Method Room Air 04/15/22 12:16 Oxygen Flow Rate 0 04/15/22 12:16 Pain Level 5 04/15/22 12:16
[2022-04-15] MEDS: Adenosine 6 MG/2 ML VIAL IVP (12:39)
[2022-04-15] MEDS: Normal Saline 1,000 ML 1000 ML IV (12:40)
[2022-04-15] MEDS: dilTIAZem 25 MG/5 ML VIAL 10 MG IVP (12:45)
[2022-04-15 12:53] LABS: Abs Immature Grans 0.02 10^3/uL (0.0-0.06); Absolute Basophil Count 0.11 10^3/uL (0.0-0.2); Absolute Eosinophil Count 0.17 10^3/uL (0.0-0.7); Absolute Lymphocyte Count 2.11 10^3/uL (1.2-3.4); Absolute Monocyte Count 0.58 10^3/uL (0.1-0.8); Absolute Neutrophil Count 4.61 10^3/uL (1.2-6.7); Basophils % 1.4; Eosinophils % 2.2; HCT 42.5 % (36.0-46.0); HGB 14.4 g/dL (11.2-15.7); Immature Grans % 0.3; Lymphocytes % 27.8; MCH 32.6 pg (27.0-33.0); MCHC 33.9 % (32.0-36.0); MCV 96 fL (80-95); MPV 12.1 fL (8.0-11.0); Monocytes % 7.6; Neutrophils % 60.7; Platelet Count 200 10^3/uL (130-400); RBC 4.42 10^6/uL (3.93-5.22); RDW 12.3 % (11.7-14.6); RDW-SD 44.1 fL
[2022-04-15 13:14] LABS: ALT 149 U/L (14-59); AST 102 U/L (15-37); Albumin 4.2 g/dL (3.4-5.0); Alkaline Phosphatase 103 U/L (46-116); Anion Gap 12.3 mmol/L (3-11); BUN 14 mg/dL (7-18); Bilirubin, Total 0.8 mg/dL (0.2-1.0); CO2 26.7 mmol/L (21.0-32.0); Calcium 8.8 mg/dL (8.5-10.1); Chloride 103 mmol/L (98-107); Estimated GFR 65.71 (mL/min/1.73m2); Glucose 137 mg/dL (74-106); Magnesium 1.6 mg/dL (1.8-2.4); Potassium 3.5 mmol/L (3.5-5.1); Sodium 142 mmol/L (136-145); Total Protein 8.1 g/dL (6.4-8.2); Troponin I < 50 ng/L (<or=60)
[2022-04-15] MEDS: MAGNESIUM SULFATE 1 GM/100 ML BAG IVPB (15:15)
--- NOTE | 2022-04-15 15:49 | NUR.NOTE ---
Nursing Note: Referral given to Care Management for [facility] [place] [place] [facility] for recurrent SVT, within 1 to 2 weeks.
== END 2022-04-15 16:18 | disposition home or self-care (01) ==
PROVIDERS: Emergency Provider Emergency Medicine; PCP Nurse Practitioner Family
DX: I47.1 Supraventricular tachycardia (principal); Z87.891 Personal history of nicotine dependence
CPT/HCPCS: 80053; 93005; 96361; 96365; 96375; 99284; 83735; 84484; 85025; 93010; J0153; J3475

== ENCOUNTER 2022-04-26 17:06 | Outpatient (REF) | payer MEDICARE, SELFPAY | END 2022-04-26 17:07 | disposition home or self-care (01) | LOC: NCHCN 17:06 | PROVIDERS: Visit Provider Nurse Practitioner Family | DX: R30.0 Dysuria (principal) | CPT/HCPCS: 87086 ==

== ENCOUNTER 2022-12-31 10:58 | Outpatient (RCR) | payer MEDICARE, MEDICAID, SELFPAY ==
--- NOTE | 2022-12-31 11:00 | HOLTER_ITS ---
APPROVED REPORT Conclusion This is a 48-hour Holter monitor Predominant rhythm was sinus with an average heart rate of 91. Minimum was 65, maximum 127 There were rare atrial and ventricular ectopic beats There was no atrial fibrillation, no high-grade AV block, no pauses greater than 3 seconds
--- NOTE | 2022-12-31 12:15 | RT.EKG_ITS ---
APPROVED REPORT Exam: Resting ECG Reason for Exam: Active Chest Discomfort Patient Location: O HR:166 bpm ECG Measurements Heart Rate 166 AXIS ND [id number] P 0 QRSd 92 QRS 34 QT 273 T -72 QTc 454 Conclusion Supraventricular tachycardia...V-rate>(220-age), QRSd<120 Repolarization abnormality, prob rate related...ST dep, T neg, tachycardia
== END 2023-01-09 23:59 | disposition home or self-care (01) ==
LOC: CARDOPNVT 10:58
PROVIDERS: Visit Provider Nurse Practitioner Family
DX: R07.9 Chest pain, unspecified (principal); R00.2 Palpitations; Z86.79 Personal history of other diseases of the circulatory system
CPT/HCPCS: 93227; 93005; 93010; 93225; 93226

== ENCOUNTER 2023-02-05 07:52 | Outpatient (CLI) | payer MEDICARE, MEDICAID, SELFPAY | END 2023-02-05 07:53 | disposition home or self-care (01) | LOC: DI.CARD 07:52 | PROVIDERS: PCP Nurse Practitioner Family; Visit Provider Internal Medicine Cardiovascular Disease | DX: R00.0 Tachycardia, unspecified (principal) | CPT/HCPCS: 93010 ==

== ENCOUNTER 2023-04-25 16:30 | Outpatient (REF) | payer MEDICARE, MEDICAID, SELFPAY ==
[2023-04-25 17:38] LABS: HCT 43.7 % (36.0-46.0); HGB 14.5 g/dL (11.2-15.7); MCH 32.4 pg (27.0-33.0); MCHC 33.2 % (32.0-36.0); MCV 98 fL (80-95); MPV 12.7 fL (8.0-11.0); Platelet Count 218 10^3/uL (130-400); RBC 4.47 10^6/uL (3.93-5.22); RDW 12.6 % (11.7-14.6); RDW-SD 45.1 fL; WBC 5.71 10^3/uL (4.4-10.8)
[2023-04-25 17:57] LABS: ALT 110 U/L (14-59); AST 55 U/L (15-37); Albumin 4.1 g/dL (3.4-5.0); Alkaline Phosphatase 114 U/L (46-116); Anion Gap 8.2 mmol/L (3-11); BUN 16 mg/dL (7-18); Bilirubin, Total 0.8 mg/dL (0.2-1.0); CO2 26.8 mmol/L (21.0-32.0); CREATININE 0.8 mg/dL (0.55-1.02); Chloride 105 mmol/L (98-107); Estimated GFR 85.35 (mL/min/1.73m2); Glucose 102 mg/dL (74-106); Magnesium 2.1 mg/dL (1.8-2.4); Potassium 4.3 mmol/L (3.5-5.1); Sodium 140 mmol/L (136-145); TSH (W/Ref FT4) 2.76 uIU/mL (0.36-3.74); Total Protein 7.5 g/dL (6.4-8.2)
== END 2023-04-25 16:31 | disposition home or self-care (01) ==
LOC: NCHCN 16:30
PROVIDERS: PCP Nurse Practitioner Family; Visit Provider Nurse Practitioner Family
DX: I10 Essential (primary) hypertension (principal); R00.0 Tachycardia, unspecified
CPT/HCPCS: 80053; 85027; 83735; 84443

== ENCOUNTER → 2023-09-11 00:36 | Outpatient (CLI) | payer MEDICARE, MEDICAID, SELFPAY ==
--- NOTE | 2023-09-11 | DI.MAMMO_ITS ---
Exam(s) MAMMO SCREENING EXAM: MAMMO SCREENING CLINICAL HISTORY: SCREENING,Z12.39 TECHNIQUE: Bilateral full field digital CC and MLO mammographic images were obtained with 3D tomosyn thesis and utilizing computer aided detection (CAD). COMPARISON: Available for comparison. FINDINGS: Masses/Architectural Distortion: There is stable right breast nodules. No new nodules are seen. No areas of architectural distortion are seen. Microcalcifications: No suspicious pleomorphic-type are seen. Skin Thickening/Nipple Retraction: None. IMPRESSION: 1. No significant interval change with no specific features of malignancy noted. 2. Unless there is more urgent need, screening mammography is recommended, as per [employer] guidelines. BI-RADS Category 2 - Benign Findings Breast Density - Category B - Scattered areas of fibroglandular density Breast density category C or D implies that the patient has dense breast tissue. Dense breast tissue is very common and is not abnormal but dense breast tissue can make it harder to find cancer on a ma mmogram. Also, dense breast tissue may increase their breast cancer risk. This information about the result of the mammogram report was provided to the patient to raise their awareness. Use this report when you speak with the patient about their risks for breast cancer, which includes their family hist ory. At that time, you may recommend for more screening tests (Ultrasound or MRI) as they might be us eful based on their risk. A negative radiographic report should not delay biopsy if a dominant or clinically suspicious mass is present. Up to ten percent of cancers are not identified on mammography. A negative report may reinforce clinical impression. Adenosis and dense breasts may obscure an underlying neoplasm. False positive reports average 6 to 10%. Patient will receive a letter notifying them of these results.
== END ==
PROVIDERS: PCP Nurse Practitioner Family; Visit Provider Nurse Practitioner Family
DX: Z12.31 Encounter for screening mammogram for malignant neoplasm of breast (principal)
CPT/HCPCS: 77063; 77067

== ENCOUNTER 2024-03-19 18:45 | Outpatient (REF) | payer MEDICARE, MEDICAID, SELFPAY ==
[2024-03-19 16:40] LABS: Abs Immature Grans 0.03 10^3/uL (0.0-0.06); Absolute Basophil Count 0.09 10^3/uL (0.0-0.2); Absolute Eosinophil Count 0.12 10^3/uL (0.0-0.7); Absolute Lymphocyte Count 1.51 10^3/uL (1.2-3.4); Absolute Monocyte Count 0.55 10^3/uL (0.1-0.8); Absolute Neutrophil Count 3.45 10^3/uL (1.2-6.7); Basophils % 1.6 %; Eosinophils % 2.1 %; HCT 41.9 % (36.0-46.0); Immature Grans % 0.5 %; Lymphocytes % 26.3 %; MCH 32.3 pg (27.0-33.0); MCHC 33.4 % (32.0-36.0); MCV 97 fL (80-95); MPV 12.8 fL (8.0-11.0); Monocytes % 9.6 %; Neutrophils % 59.9 %; Platelet Count 205 10^3/uL (130-400); RBC 4.34 10^6/uL (3.93-5.22); RDW 12.2 % (11.7-14.6); RDW-SD 43.9 fL; WBC 5.75 10^3/uL (4.4-10.8)
[2024-03-19 17:00] LABS: Hemoglobin A1C 5.6 % (<5.7)
[2024-03-19 17:06] LABS: ALT 92 U/L (14-59); AST 52 U/L (15-37); Alkaline Phosphatase 116 U/L (46-116); Anion Gap 10.3 mmol/L (3-11); BUN 8 mg/dL (7-18); Bilirubin, Total 0.88 mg/dL (0.2-1.0); CO2 29.7 mmol/L (21.0-32.0); CREATININE 0.8 mg/dL (0.55-1.02); Calcium 8.8 mg/dL (8.5-10.1); Calculated LDL 122 mg/dL (<100); Chloride 101 mmol/L (98-107); Cholesterol 199 mg/dL (<200); Estimated GFR 84.82 (mL/min/1.73m2); Glucose 91 mg/dL (74-106); HDL Cholesterol 65 mg/dL (40-60); Potassium 3.6 mmol/L (3.5-5.1); Sodium 141 mmol/L (136-145); TSH (W/Ref FT4) 2.79 uIU/mL (0.36-3.74); Total Protein 7.3 g/dL (6.4-8.2); Triglyceride 64 mg/dL (<150)
== END 2024-03-19 18:46 | disposition home or self-care (01) ==
LOC: LBO 18:45
PROVIDERS: PCP Nurse Practitioner Family; Visit Provider Nurse Practitioner Family
DX: I10 Essential (primary) hypertension (principal)
CPT/HCPCS: 80053; 80061; 83036; 84443; 85025

== ENCOUNTER 2024-03-25 12:47 | Outpatient (REF) | payer MEDICARE, MEDICAID, SELFPAY ==
[2024-03-27 09:55] LABS: Hepatitis A Antibody IgM Negative (Negative); Hepatitis B Core Antibody Negative (Negative); Hepatitis B surface Ag Negative (Negative); Hepatitis C Ab w Rflx HCV PCR Negative (Negative)
== END 2024-03-25 12:48 | disposition home or self-care (01) ==
LOC: LBN 12:47
PROVIDERS: PCP Nurse Practitioner Family; Visit Provider Nurse Practitioner Family
DX: I10 Essential (primary) hypertension (principal); E78.5 Hyperlipidemia, unspecified; D51.3 Other dietary vitamin B12 deficiency anemia; E55.9 Vitamin D deficiency, unspecified; Z00.00 Encounter for general adult medical examination without abnormal findings
CPT/HCPCS: 86704; 86709; 86803; 87340

== ENCOUNTER 2024-03-26 01:59 | Outpatient (CLI) | payer MEDICARE, MEDICAID, SELFPAY ==
--- NOTE | 2024-03-26 08:45 | DI.US_ITS ---
Exam(s) US ABDOMEN LIMITED EXAM: US ABDOMEN LIMITED CLINICAL HISTORY: ELEVATED AST,ALT TECHNIQUE: Ultrasound abdomen performed using standard protocol. COMPARISON: CT CHEST ABD PELVIS WITH CONTRAST from 09/21/2015 FINDINGS: PANCREAS: Normal where visualized. LIVER: There is increased echogenicity of the liver consistent with fatty infiltration. Hepatopetal flow in the Portal Vein. The liver measures in 19.1 cm length. No evidence of a hepatic mass. GALLBLADDER: No evidence of cholelithiasis. No evidence of wall thickening. No pericholecystic fluid identified. BILIARY SYSTEM: Common bile duct measures < 7 mm. No intrahepatic biliary ductal dilation. VALLE'S SIGN: Negative. RIGHT KIDNEY: Kidney is normal in size. No evidence of renal calculi. No evidence of hydronephrosis. No renal mass or cyst identified. ASCITES: None seen. IMPRESSION: Hepatomegaly and hepatic steatosis. DATA REPOSITORY:
== END 2024-03-26 02:19 ==
LOC: DI 01:59
PROVIDERS: PCP Nurse Practitioner Family; Visit Provider Nurse Practitioner Family
DX: R16.2 Hepatomegaly with splenomegaly, not elsewhere classified (principal)
CPT/HCPCS: 76705

== ENCOUNTER 2024-12-01 11:59 | Emergency (ER) | payer MEDICARE, MEDICAID, SELFPAY ==
[2024-12-01 12:06] VITALS: BP 145/87; PULSE 68; RESP 18; TEMP 36.6; O2SAT 100
--- NOTE | 2024-12-01 12:30 | DI.RAD_ITS ---
Exam(s) XR ELBOW RT COMPLETE EXAM: XR ELBOW RT COMPLETE CLINICAL HISTORY: R elbow/forearm pain after FOOSH. TECHNIQUE: 2D digital imaging was performed of the left elbow. Four images were obtained. AP, late ral and oblique views were obtained. COMPARISON: No exams were available for comparison FINDINGS: BONES: No acute fracture is present. No bony destructive lesion is seen. JOINTS: The elbow is normally aligned. No joint effusion is seen. SOFT TISSUE: There is a calcification in the soft tissues adjacent to the olecranon likely reflecting calcific tendinitis. There is a well corticated osseous density adjacent to the medial epicondyle w hich appears old IMPRESSION: No acute fracture or dislocation. DATA REPOSITORY: RADIATION DOSE DELIVERED:
--- NOTE | 2024-12-01 12:46 | ED.GENADUL_ITS ---
Discharge Plan Disposition Patient Disposition: Home Discharge Details Clinical Impression: Epicondylitis, lateral (tennis elbow) Primary Care Provider: LEO EVERETT ED Provider: Juju Morris Home Meds and New Rx's Prescriptions: No Action diltiazem HCl 30 MG tablet 30 mg PO PRN MDD 240 Qty: 30 3RF Rx Instructions: Take 1-2 tabs if HR greater than 140 bpm for more than 10 min venlafaxine 75 mg capsule,extended release 24hr 75 mg PO DAILY Rx Instructions: 01/04/23 Per pcp notes takes with 37.5 mg for total 112.mg daily RH venlafaxine 37.5 mg capsule,extended release 24hr 37.5 mg PO DAILY Rx Instructions: 01/04/23 Per pcp notes takes with 75 mg for total 112.5mg daily RH losartan 50 mg tablet 50 mg PO DAILY gabapentin 400 MG capsule 400 mg PO DAILY diltiazem HCl 120 mg capsule,extended release 12 hr 120 mg PO QAM Qty: 90 3RF chlorthalidone 25 mg tablet 25 mg PO DAILY Discharge Instructions Instructions: Lateral Epicondylitis Exercises, Overuse Injuries (DC) Additional Instructions: Please call your primary care provider's office first thing in the morning to schedule follow-up appointment for reassessment. A referral to physical therapy may be helpful Your x-rays were negative for fracture or other acute abnormality. I recommend you use ibuprofen 600 mg every 8 hours as needed for inflammation/discomfort. Apply ice for 15 to 20 minutes at a time every hour or so. Practice gentle massage. You may do the exercises gently as provided. Return to emergency care if you develop new blueness/color change to your hands, newly severely worsening pain, swelling/redness/warmth to your elbow, or if you are very worried and need to be rechecked again immediately Referrals: Bety Musa [ [facility] STAFF PHYSICIAN] - Discharge Data Discharge Date/Time-TO BE ENTERED AT DEPARTURE: 12/01/24 13:41 HPI General Date/Time Provider Initiated Documentation: 12/01/24 12:07 . HPI Narrative: Marilynn is a 59-year-old female presenting with arm injury. Approximately 3 weeks ago, she fell while getting the mail, landing on outstretched hands. No head, back, or neck injuries reported. 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 Had persistent soreness in both arms, but the right has been more affected. Pain localized from elbow to wrist, occasional shoulder discomfort, intensifies at night, disrupts sleep. Reports cold/numbness sensation in hand, difficulty rotating wrist, tingling in hand. No ibuprofen taken. No significant related past medical history or injury to this arm previously Related Data Home Medications ?Medication ?Instructions ?Recorded ?Confirmed gabapentin 400 mg capsule 400 mg PO DAILY 10/26/14 12/01/24 diltiazem HCl 30 mg tablet 30 mg PO PRN #30 tab-caps 10/31/17 12/01/24 diltiazem HCl 120 mg 120 mg PO QAM #90 caps 04/15/22 12/01/24 capsule,extended release 12 hr losartan 50 mg tablet 50 mg PO DAILY 01/04/23 12/01/24 venlafaxine 37.5 mg 37.5 mg PO DAILY 01/04/23 12/01/24 capsule,extended release 24 hr venlafaxine 75 mg capsule,extended 75 mg PO DAILY 01/04/23 12/01/24 release 24 hr chlorthalidone 25 mg tablet 25 mg PO DAILY 12/01/24 12/01/24 Previous Rx's ?Medication ?Instructions ?Recorded diltiazem HCl 30 mg tablet 30 mg PO PRN #30 tab-caps 10/31/17 diltiazem HCl 120 mg 120 mg PO QAM #90 caps 04/15/22 capsule,extended release 12 hr Allergies Allergy/AdvReac Type Severity Reaction Status Date / Time Sulfa (Sulfonamide Allergy Intermediate Hives Unverified 12/01/24 12:10 Antibiotics) quetiapine (From Seroquel) AdvReac Unknown Unknown Unverified 12/01/24 12:10 metoprolol AdvReac fatigue Unverified 12/01/24 12:10 lisinopril/hctz AdvReac Unknown Other (See Uncoded 12/01/24 12:10 Comment) General Stated Complaint: Orthopedic GARCIA: 4 Review of Systems Narrative: See HPI Exam Narrative Exam Narrative: General Appearance: Normal. Vital signs: Within normal limits. Extremities: Tenderness with palpation of right lateral forearm. No obvious deformities, joint redness/swelling/warmth. Painless range of motion of the wrist and hand. + CMS to fingers, brisk cap refill. Full range of motion of shoulder. Skin: Warm and dry, no rash. Psychiatric: Normal. Course Vital Signs Vital signs: Vital Signs Temperature 36.6 C 12/01/24 12:06 Pulse 68 12/01/24 12:06 Respiratory Rate 18 12/01/24 12:06 Blood Pressure 145/87 H 12/01/24 12:06 Pulse Oximetry 100 12/01/24 12:06 Temperature 36.6 C 12/01/24 12:06 Pulse 68 12/01/24 12:06 Respiratory Rate 18 12/01/24 12:06 Blood Pressure 145/87 H 12/01/24 12:06 Pulse Oximetry 100 12/01/24 12:06 Medical Decision Making Initial Assessment: 59-year-old female with R forearm pain after tripping and falling three weeks ago. Pain from elbow to wrist, worsens at night, exacerbated by lifting and rotating wrist. No history of GI bleed or bleeding disorders, not on anticoagulation therapy. ED Course: - Ordered x-ray to rule out fractures. - Apply ice 15-20 minutes, 5-6 times daily. - Gentle massage recommended. - Topical analgesics ([place], IcyHot, [place]) recommended. - Prescribed ibuprofen 400 mg, three times daily. Final Assessment: Symptoms consistent with lateral epicondylitis. Pain from elbow to wrist, worsens at night, exacerbated by lifting and rotating wrist. X- ray negative for fracture. No red flags concerning for neurovascular compromise no history of GI bleed or bleeding disorders, not on anticoagulation therapy. Treatment includes ice application, gentle massage, topical analgesics, and ibuprofen. Clinical Impression: - Lateral epicondylitis Disposition: - Follow-Up: Follow-up with Dr. Albert within a week to discuss potential physical therapy referral. Patient consented to the use of [facility] Imaging Data Radiologic Study: Radiologist's impression: Exam(s) XR ELBOW RT COMPLETE EXAM: XR ELBOW RT COMPLETE CLINICAL HISTORY: R elbow/forearm pain after FOOSH. TECHNIQUE: 2D digital imaging was performed of the left elbow. Four images were obtained. AP, lateral and oblique views were obtained. COMPARISON: No exams were available for comparison FINDINGS: BONES: No acute fracture is present. No bony destructive lesion is seen. JOINTS: The elbow is normally aligned. No joint effusion is seen. SOFT TISSUE: There is a calcification in the soft tissues adjacent to the olecranon likely reflecting calcific tendinitis. There is a well corticated osseous density adjacent to the medial epicondyle which appears old IMPRESSION: No acute fracture or dislocation. Quality:SDOH Health Related Social Needs: No Data to Display PFSH All Active Problems (Updated 12/01/24 @ 13:34 by Juju Lam) Epicondylitis, lateral (tennis elbow) (Acute) History of john (Acute) Depression with anxiety (Acute) Colon cancer high risk (Acute) 01/04/23 PCP problem list states colon CA no resection frequent surveillance RH HTN (hypertension) with goal to be determined (Acute) Medical History (Updated 12/01/24 @ 13:34 by Juju Lam) Hysteria, unspecified Paroxysmal tachycardia Surgical History (Updated 01/04/23 @ 14:56 by Kalin Stearns RN) History of radiofrequency ablation procedure for cardiac arrhythmia Social History Smoking/Tobacco Use Status: Former Tobacco Use Quit Date: 08/12/98 Smoking risk assessment performed?: Yes Alcohol Intake: never Drug use: Never Substance use type: does not use Do you feel safe at home: Yes Do you feel safe in your relationship?: Yes
[2024-12-01 13:40] VITALS: BP 157/82; PULSE 64; RESP 16; O2SAT 100
== END 2024-12-01 13:41 | disposition home or self-care (01) ==
PROVIDERS: Emergency Provider Nurse Practitioner Family; PCP Nurse Practitioner Family
DX: M77.11 Lateral epicondylitis, right elbow (principal); I10 Essential (primary) hypertension; Z87.891 Personal history of nicotine dependence
CPT/HCPCS: 99283; 73080

== ENCOUNTER 2025-01-31 11:26 | Emergency (ER) | payer MEDICARE, MEDICAID, SELFPAY ==
[2025-01-31] VITALS (40 sets, daily range): BP systolic 131–185; BP diastolic 53–108; PULSE 58–104; RESP 11–27; TEMP 36.8; O2SAT 95–100
--- NOTE | 2025-01-31 11:15 | RT.EKG_ITS ---
APPROVED REPORT Exam: Resting ECG Reason for Exam: high BP, dizzy Patient Location: E HR:102 bpm ECG Measurements Heart Rate 102 AXIS TX 198 P 69 QRSd 97 QRS 56 QT 361 T 6 QTc 471 Conclusion Sinus tachycardia...rate> 99 Borderline prolonged TX interval...TX >197, V-rate 91-120 Left atrial enlargement...P, P'>60mS, <-0.15mV V1 Repol abnrm suggests ischemia, anterolateral...ST dep, T neg, I aVL V2-V6 I have reviewed and interpreted ECG and agree with software generated interpretation.
--- NOTE | 2025-01-31 11:30 | RT.EKG_ITS ---
APPROVED REPORT Exam: Resting ECG Reason for Exam: R sided posterior add-ons Patient Location: E HR:77 bpm ECG Measurements Heart Rate 77 AXIS W[place] 161 P 55 QRSd 98 QRS 50 QT 403 T 46 QTc 451 Conclusion Sinus rhythm...normal P axis, V-rate 60- 99 Atrial premature complex...SV complex w/ short R-R interval Low voltage, extremity leads...all extremity leads <0.5mV Consider anterior infarct...Q >30mS in V2-V5 I have reviewed and interpreted ECG and agree with software generated interpretation.
--- NOTE | 2025-01-31 11:30 | RT.EKG_ITS ---
APPROVED REPORT Exam: Resting ECG Reason for Exam: R sided and posterior add-ons Patient Location: E HR:67 bpm ECG Measurements Heart Rate 67 AXIS MD 159 P 32 QRSd 96 QRS 10 QT 401 T 62 QTc 423 Conclusion Sinus rhythm...normal P axis, V-rate 60- 99 I have reviewed and interpreted ECG and agree with software generated interpretation.
--- NOTE | 2025-01-31 11:48 | W.ED.GENAD ---
Discharge Plan Disposition Patient Disposition: Home Condition: Stable Discharge Details Clinical Impression: Hypokalemia Primary Care Provider: LEO EVERETT ED Provider: Marty Copeland Home Meds and New Rx's Prescriptions: New potassium chloride [K-Tab] 20 mEq tablet extended release 20 meq PO DAILY Qty: 7 0RF Continued diltiazem HCl 30 MG tablet 30 mg PO PRN MDD 240 Qty: 30 3RF Rx Instructions: Take 1-2 tabs if HR greater than 140 bpm for more than 10 min venlafaxine 75 mg capsule,extended release 24hr 75 mg PO DAILY Rx Instructions: 01/04/23 Per pcp notes takes with 37.5 mg for total 112.mg daily RH venlafaxine 37.5 mg capsule,extended release 24hr 37.5 mg PO DAILY Rx Instructions: 01/04/23 Per pcp notes takes with 75 mg for total 112.5mg daily RH losartan 50 mg tablet 50 mg PO DAILY gabapentin 400 MG capsule 400 mg PO DAILY diltiazem HCl 120 mg capsule,extended release 12 hr 120 mg PO QAM Qty: 90 3RF chlorthalidone 25 mg tablet 25 mg PO DAILY Discharge Instructions Instructions: Hypokalemia, High Potassium Diet, Potassium Chloride Additional Instructions: You were seen in the emergency department for your diarrhea for the past 3 days as well as some shakiness and dizziness at home you state you have felt quite faint, this is likely due to fluid loss as well as significant hypokalemia. We repleted you with potassium here in the emergency department and I have sent a further prescription for you to take daily, please encourage a high potassium diet as well and follow-up with outpatient recheck of your potassium level in about a week. Please return to the emergency department at once for any further episodes of near fainting, chest pain or any other emergent concerns. Please seek a referral to cardiology for ECHOcardiogram and stress test. Referrals: LEO EVERETT, MACHINE TOOL OPERATOR [Primary Care Provider, Medicine] Discharge Data Discharge Date/Time-TO BE ENTERED AT DEPARTURE: 01/31/25 20:38 HPI General Date/Time Provider Initiated Documentation: 01/31/25 11:36. HPI Narrative: 59 year-old female presents to ED today by POV/ambulating with her with a chief complaint of epigastric pain, dizziness, shakiness with high BP reading at home, 3 days of diarrhea, and some tightness in her L neck with onset of shakiness today. Quality described as generally feels weak, sweaty, no radiation to overt pain in the chest cavity, intractable nausea/vomiting, shortness of breath, states she has had near syncope multiple times, denies visual changes, numbness/tingling, or slurred speech, denies fevers. Severity is described as moderate. Palliating factors include nothing specific attempted. Provoking factors include nothing specific. Events leading up to the incident/Associated Symptoms: Patient denies personal cardiac history, is adopted. Patient not anticoagulated. Related Data Home Medications ?Medication ?Instructions ?Recorded ?Confirmed gabapentin 400 mg capsule 400 mg PO DAILY 10/26/14 01/31/25 diltiazem HCl 30 mg tablet 30 mg PO PRN #30 tab-caps 10/31/17 01/31/25 diltiazem HCl 120 mg 120 mg PO QAM #90 caps 04/15/22 01/31/25 capsule,extended release 12 hr losartan 50 mg tablet 50 mg PO DAILY 01/04/23 01/31/25 venlafaxine 37.5 mg 37.5 mg PO DAILY 01/04/23 01/31/25 capsule,extended release 24 hr venlafaxine 75 mg capsule,extended 75 mg PO DAILY 01/04/23 01/31/25 release 24 hr chlorthalidone 25 mg tablet 25 mg PO DAILY 12/01/24 01/31/25 potassium chloride 20 mEq 20 meq PO DAILY #7 tabs 01/31/25 tablet,extended release (K-Tab) Previous Rx's ?Medication ?Instructions ?Recorded diltiazem HCl 30 mg tablet 30 mg PO PRN #30 tab-caps 10/31/17 diltiazem HCl 120 mg 120 mg PO QAM #90 caps 04/15/22 capsule,extended release 12 hr potassium chloride 20 mEq 20 meq PO DAILY #7 tabs 01/31/25 tablet,extended release (K-Tab) Allergies Allergy/AdvReac Type Severity Reaction Status Date / Time Sulfa (Sulfonamide Allergy Intermediate Hives Unverified 01/31/25 11:34 Antibiotics) quetiapine (From Seroquel) AdvReac Unknown Unknown Unverified 01/31/25 11:34 metoprolol AdvReac fatigue Unverified 01/31/25 11:34 lisinopril/hctz AdvReac Unknown Other (See Uncoded 01/31/25 11:34 Comment) General Stated Complaint: Nausea/Vomit/Diar GARCIA: 3 Review of Systems All systems reviewed & are unremarkable except as noted in HPI and below Exam Narrative Exam Narrative: GENERAL APPEARANCE: Well-nourished, non-toxic, awake and alert, atraumatic, no acute distress. SKIN: Warm, pink, dry, intact, without rashes/lesions/ulcerations. HEAD: Normocephalic, atraumatic, normal hair distribution for gender/age. EYES: Normal conjunctiva, no exudates on lids/lashes. ENT: Nares patent, no circumoral cyanosis, no facial swelling NECK: Supple, trachea midline, painless cervical ROM. LUNGS/CHEST: Lungs CTA bilaterally-no rhonchi/rales/wheezes diffusely, non-labored respirations, normal A/P diameter, symmetrical expansion, no chest wall deformity HEART (CV/PV): Regular rate and rhythm without murmur, no peripheral edema, no JVD. ABDOMEN: Soft, non-distended, no guarding, epigastric tenderness without rebound tenderness, negative Carney sign, no McBurney's point tenderness. MSK: Normal ROM, no swelling/deformity to bilateral UEs or LEs, moving all extremities without weakness, no cyanosis, spine midline without tenderness, normal curvature. NEURO: Mental Status AAOx4 - alert to person, place, time, events No facial droop, no forehead involvement. Motor: No focal weakness - strength 5/5 in bilateral UEs and LEs, proximal and distal, symmetric. Sensory: sensation intact to light touch globally. Gait normal: patient ambulated without ataxia into ED room. PSYCH: euthymic, cooperative, pleasant, appropriate speech Course Vital Signs Vital signs: Vital Signs Temperature 36.8 C 01/31/25 11:29 Pulse 104 H 01/31/25 11:29 Respiratory Rate 01/31/25 11:29 Blood Pressure 146/108 H 01/31/25 11:29 Pulse Oximetry 98 01/31/25 11:29 Temperature 36.8 C 01/31/25 11:29 Temperature Source Oral 01/31/25 11:29 Pulse 104 H 01/31/25 11:29 Respiratory Rate 22 01/31/25 11:29 Blood Pressure 146/108 H 01/31/25 11:29 Blood Pressure Position Sitting 01/31/25 11:29 Pulse Oximetry 98 01/31/25 11:29 Oxygen Delivery Method Room Air 01/31/25 11:29 Oxygen Flow Rate 0 01/31/25 11:29 Pain Level 7 01/31/25 11:29 Medical Decision Making This dictation utilizes [id number] dictation software and may contain unedited grammatical errors. 59 year-old female presents to ED today by POV/ambulating with her with a chief complaint of epigastric pain, dizziness, shakiness with high BP reading at home, 3 days of diarrhea, and some tightness in her L neck with onset of shakiness today. Quality described as generally feels weak, sweaty, no radiation to overt pain in the chest cavity, intractable nausea/vomiting, shortness of breath, states she has had near syncope multiple times, denies visual changes, numbness/tingling, or slurred speech, denies fevers. Severity is described as moderate. Palliating factors include nothing specific attempted. Provoking factors include nothing specific. Events leading up to the incident/Associated Symptoms: Patient denies personal cardiac history, is adopted. Patients' medical history: Paroxysmal tachycardia, john and anxiety, hypertension. Family and social history: Unknown family history, stays active and eats healthy. Pertinent exam findings / vital signs include tearful, benign cardiopulmonary exam, epigastric and right upper quadrant tenderness with overt negative Carney's, no Rovsing's or McBurney's point tenderness, mild tachycardia afebrile and nontoxic. Differential / pathologies of concern include pancreatitis, biliary colic, GERD or PUD, ACS, PE, gastroenteritis, SBO. Diagnostic studies of: -CBC, CMP, D-dimer, magnesium, lipase, serial troponins, BNP, EKG, right sided and posterior additional EKGs, XR chest, CT ABD/pelvis with contrast. - CBC shows no significant abnormality - CMP shows hypokalemia at 2.6, no other actionable abnormality - Lipase negative - BNP is 68 - Initial troponin 34 repeats pending - Magnesium within normal limits - Initial EKG showed some lateral ST depressions but no reciprocal elevation in lead III, right-sided and posterior are benign - CT shows no acute findings - XR no acute findings Interventions of: -324 aspirin, 1 g IV magnesium, 20 mEq potassium IV X2, 40 mEq potassium. ED Course/Assessment/Plan: 59-year-old female has had diarrhea for the past 3 days felt some shakiness at home with near syncope, denies chest pain and has no cardiac history though her family history is unknown due to being adopted. She was found to have significant hypokalemia and underwent extensive repletion and was placed on outpatient supplements, her heart score is low risk, I discussed all this with the patient and recommended she follow-up with outpatient cardiology visit, I did offer observation but it was their preference to return home with hopeful return to normal with good p.o. intake and resolution of possible gastroenteritis. Strict return criteria for any failure to improve, return of symptoms especially with syncope or chest pain. Findings not consistent with ACS, pancreatitis, acute surgical abdominal pathology, syncope. Disposition of Hypokalemia. Patient verbalized understanding of the plan and return to ED criteria and engaged in shared decision making. Medical Records Medical records reviewed: Yes I reviewed the patient's medical records. Imaging Data Radiologic Study: Attestation: I personally reviewed and interpreted this imaging study as follows: Imaging: CT Scan Radiologist's impression: EXAM: CT ABDOMEN PELVIS W CLINICAL HISTORY: RUQ tenderness TECHNIQUE: Imaging Protocol: Axial computed tomography images with coronal and sagittal reformatted images were created and reviewed. CONTRAST MATERIAL: Intravenous: Omnipaque 350 Contrast volume:75 mL Oral: No COMPARISON: CT CHEST ABD PELVIS WITH CONTRAST from 09/21/2015 FINDINGS: ABDOMEN: Lung Bases: No acute abnormality. Liver: There is decreased density of the liver suggesting fatty infiltration. No measurable mass. Portal, Superior Mesenteric, and Splenic Veins: Unremarkable. Gallbladder and Biliary Tract: No radiodense calculus or dilation. Pancreas: Normal density, no abnormal calcifications or inflammatory process. Spleen: Normal. Adrenals: No masses seen. Kidneys: Normal size, contour and axis. No radiodense stones or obstructive uropathy. No masses seen. Abdominal Aorta: Abdominal portion non-dilated. Atherosclerotic calcification is present. Bowel: No obstruction or bowel wall thickening. There is diverticulosis of the colon without evidence of acute diverticulitis. There is no evidence of appendicitis. Peritoneal Cavity: No ascites, collection or mesenteric inflammatory response. No free air. Lymph Nodes: Within normal limits. Bones: Within normal limits for the patient's age. Soft Tissues: Unremarkable. PELVIS: Bladder: Symmetric distention, no gross wall thickening. Reproductive Organs: Status post hysterectomy. Lymph Nodes: Within normal limits. Bones: Within normal limits for the patient's age. IMPRESSION: No acute abdominal or pelvic process. Radiologic Study #2: Attestation: I personally reviewed and interpreted this imaging study as follows: Imaging: X-Ray Radiologist's impression: EXAM: XR CHEST 2V PA LATERAL CLINICAL HISTORY: chest/epigastric pain TECHNIQUE: 2D digital imaging was performed of the chest. Two images were obtained. PA and lateral views were obtained. COMPARISON: CR XR CHEST 2V PA LATERAL from 01/18/2019 FINDINGS: MEDIASTINUM: Normal. HEART: Normal. PULMONARY VASCULATURE: Normal. LUNGS: Clear. PLEURAL SPACE: No pleural effusion or pneumothorax. BONE:Within normal limits for the patient's age. OTHER FINDINGS:Normal. IMPRESSION: No acute pulmonary findings. Lab Data Lab results reviewed: Yes I reviewed the patient's lab results. Labs: Laboratory Tests Range/Units 01/31/25 01/31/25 01/31/25 11:43 11:43 11:43 WBC (4.4-10.8) 10^3/uL 8.05 RBC (3.93-5.22) 10^6/uL 5.20 Hgb (11.2-15.7) g/dL 15.4 Hct (36.0-46.0) % 44.5 MCV (80-95) fL 86 MCH (27.0-33.0) pg 29.6 MCHC (32.0-36.0) % 34.6 RDW (11.7-14.6) % 12.5 Plt Count (130-400) 10^3/uL 251 MPV (8.0-11.0) fL 11.7 H Immature Gran % % 0.2 Neutrophils % % 67.0 Lymphocytes % % 22.9 Monocytes % % 7.2 Eosinophils % % 1.5 Basophils % % 1.2 Nucleated RBC % (0.0-0.3) % 0.0 Absolute Neutrophils (1.2-6.7) 10^3/uL 5.39 Absolute Lymphocytes (1.2-3.4) 10^3/uL 1.84 Absolute Monocytes (0.1-0.8) 10^3/uL 0.58 Absolute Eosinophils (0.0-0.7) 10^3/uL 0.12 Absolute Basophils (0.0-0.2) 10^3/uL 0.10 D-Dimer (<500) ng/mlFEU 482 Sodium (136-145) mmol/L 142 Potassium (3.5-5.1) mmol/L 2.6 L* Chloride (98-107) mmol/L 101 Carbon Dioxide (21.0-32.0) mmol/L 28.3 Anion Gap (3-11) mmol/L 12.7 H BUN (7-18) mg/dL 14 Creatinine (0.55-1.02) mg/dL 1.0 Est GFR (CKD-EPI 2020) (mL/min/1.73m2) 64.90 Glucose (74-106) mg/dL 114 H Calcium (8.5-10.1) mg/dL 9.9 Magnesium (1.8-2.4) mg/dL 1.8 Cancelled Total Bilirubin (0.2-1.0) mg/dL 1.2 H AST (15-37) U/L 27 ALT (14-59) U/L 35 Alkaline Phosphatase (46-116) U/L 116 Troponin I (<or=51) ng/L 34 Cancelled NT-Pro-B Natriuret Pep (<300) pg/mL 68 Total Protein (6.4-8.2) g/dL Albumin (3.4-5.0) g/dL Lipase (<78) U/L Range/Units 01/31/25 01/31/25 01/31/25 11:43 11:43 12:50 WBC (4.4-10.8) 10^3/uL RBC (3.93-5.22) 10^6/uL Hgb (11.2-15.7) g/dL Hct (36.0-46.0) % MCV (80-95) fL MCH (27.0-33.0) pg MCHC (32.0-36.0) % RDW (11.7-14.6) % Plt Count (130-400) 10^3/uL MPV (8.0-11.0) fL Immature Gran % % Neutrophils % % Lymphocytes % % Monocytes % % Eosinophils % % Basophils % % Nucleated RBC % (0.0-0.3) % Absolute Neutrophils (1.2-6.7) 10^3/uL Absolute Lymphocytes (1.2-3.4) 10^3/uL Absolute Monocytes (0.1-0.8) 10^3/uL Absolute Eosinophils (0.0-0.7) 10^3/uL Absolute Basophils (0.0-0.2) 10^3/uL D-Dimer (<500) ng/mlFEU Sodium (136-145) mmol/L Potassium (3.5-5.1) mmol/L Chloride (98-107) mmol/L Carbon Dioxide (21.0-32.0) mmol/L Anion Gap (3-11) mmol/L BUN (7-18) mg/dL Creatinine (0.55-1.02) mg/dL Est GFR (CKD-EPI 2020) (mL/min/1.73m2) Glucose (74-106) mg/dL Calcium (8.5-10.1) mg/dL Magnesium (1.8-2.4) mg/dL Total Bilirubin (0.2-1.0) mg/dL AST (15-37) U/L ALT (14-59) U/L Alkaline Phosphatase (46-116) U/L Troponin I (<or=51) ng/L 36 NT-Pro-B Natriuret Pep (<300) pg/mL Cancelled Total Protein (6.4-8.2) g/dL 8.8 H Albumin (3.4-5.0) g/dL 4.4 Lipase (<78) U/L 45 Cancelled PFSH All Active Problems (Updated 01/31/25 @ 16:07 by PHIL Cornell) Hypokalemia (Acute) History of john (Acute) Depression with anxiety (Acute) Colon cancer high risk (Acute) 01/04/23 PCP problem list states colon CA no resection frequent surveillance RH HTN (hypertension) with goal to be determined (Acute) Medical History (Updated 01/31/25 @ 16:07 by PHIL Cornell) Hysteria, unspecified Paroxysmal tachycardia Surgical History (Updated 01/04/23 @ 14:56 by Kalin Stearns RN) History of radiofrequency ablation procedure for cardiac arrhythmia Social History Smoking/Tobacco Use Status: Former Tobacco Use Quit Date: 08/12/98 Smoking risk assessment performed?: Yes Alcohol Intake: never Drug use: Never Substance use type: does not use Do you feel safe at home: Yes Do you feel safe in your relationship?: Yes
[2025-01-31 11:55] LABS: Abs Immature Grans 0.02 10^3/uL (0.0-0.06); Absolute Eosinophil Count 0.12 10^3/uL (0.0-0.7); Absolute Lymphocyte Count 1.84 10^3/uL (1.2-3.4); Absolute Monocyte Count 0.58 10^3/uL (0.1-0.8); Absolute Neutrophil Count 5.39 10^3/uL (1.2-6.7); Basophils % 1.2 %; Eosinophils % 1.5 %; HCT 44.5 % (36.0-46.0); HGB 15.4 g/dL (11.2-15.7); Immature Grans % 0.2 %; Lymphocytes % 22.9 %; MCH 29.6 pg (27.0-33.0); MCHC 34.6 % (32.0-36.0); MCV 86 fL (80-95); MPV 11.7 fL (8.0-11.0); Monocytes % 7.2 %; Platelet Count 251 10^3/uL (130-400); RDW 12.5 % (11.7-14.6); RDW-SD 39.3 fL; WBC 8.05 10^3/uL (4.4-10.8)
[2025-01-31 12:19] LABS: ALT 35 U/L (14-59); AST 27 U/L (15-37); Albumin 4.4 g/dL (3.4-5.0); Alkaline Phosphatase 116 U/L (46-116); Anion Gap 12.7 mmol/L (3-11); BUN 14 mg/dL (7-18); Bilirubin, Total 1.2 mg/dL (0.2-1.0); CO2 28.3 mmol/L (21.0-32.0); Calcium 9.9 mg/dL (8.5-10.1); Chloride 101 mmol/L (98-107); Glucose 114 mg/dL (74-106); Lipase 45 U/L (<78); Magnesium 1.8 mg/dL (1.8-2.4); NT-proBNP 68 pg/mL (<300); Sodium 142 mmol/L (136-145); Total Protein 8.8 g/dL (6.4-8.2); Troponin I 34 ng/L (<or=51)
[2025-01-31] MEDS: Aspirin 81 MG CHEW 324 MG CH (12:21)
[2025-01-31 12:25] LABS: D-Dimer 482 ng/mlFEU (<500)
[2025-01-31 12:38] LABS: Potassium 2.6 mmol/L (3.5-5.1)
--- NOTE | 2025-01-31 12:45 | DI.CT_ITS ---
Exam(s) CT ABDOMEN PELVIS W EXAM: CT ABDOMEN PELVIS W CLINICAL HISTORY: RUQ tenderness TECHNIQUE: Imaging Protocol: Axial computed tomography images with coronal and sagittal reformatted images were created and reviewed. CONTRAST MATERIAL: Intravenous: Omnipaque 350 Contrast volume:75 mL Oral: No COMPARISON: CT CHEST ABD PELVIS WITH CONTRAST from 09/21/2015 FINDINGS: ABDOMEN: Lung Bases: No acute abnormality. Liver: There is decreased density of the liver suggesting fatty infiltration. No measurable mass. Portal, Superior Mesenteric, and Splenic Veins: Unremarkable. Gallbladder and Biliary Tract: No radiodense calculus or dilation. Pancreas: Normal density, no abnormal calcifications or inflammatory process. Spleen: Normal. Adrenals: No masses seen. Kidneys: Normal size, contour and axis. No radiodense stones or obstructive uropathy. No masses seen. Abdominal Aorta: Abdominal portion non-dilated. Atherosclerotic calcification is present. Bowel: No obstruction or bowel wall thickening. There is diverticulosis of the colon without evidence of acute diverticulitis. There is no evidence of appendicitis. Peritoneal Cavity: No ascites, collection or mesenteric inflammatory response. No free air. Lymph Nodes: Within normal limits. Bones: Within normal limits for the patient's age. Soft Tissues: Unremarkable. PELVIS: Bladder: Symmetric distention, no gross wall thickening. Reproductive Organs: Status post hysterectomy. Lymph Nodes: Within normal limits. Bones: Within normal limits for the patient's age. IMPRESSION: No acute abdominal or pelvic process. RADIATION DOSE DELIVERED: 638.79mGy.cm Total DLP DATA REPOSITORY: All CT scans at this facility are submitted to the National Radiology Data Registry (NRDR) Dose Index Registry (DIR) with the [employer] [place] [employer] ([employer]). RADIATION OPTIMIZATION: All CT scans at this facility use at least one of these dose optimization techniques: automated exposure control; mA and/or kV adjustment per patient size (includes targeted exams where dose is matched to clinical indication); or iterative reconstruction.
--- NOTE | 2025-01-31 12:45 | DI.RAD_ITS ---
Exam(s) XR CHEST 2V PA LATERAL EXAM: XR CHEST 2V PA LATERAL CLINICAL HISTORY: chest/epigastric pain TECHNIQUE: 2D digital imaging was performed of the chest. Two images were obtained. PA and lateral views were obtained. COMPARISON: CR XR CHEST 2V PA LATERAL from 01/18/2019 FINDINGS: MEDIASTINUM: Normal. HEART: Normal. PULMONARY VASCULATURE: Normal. LUNGS: Clear. PLEURAL SPACE: No pleural effusion or pneumothorax. BONE:Within normal limits for the patient's age. OTHER FINDINGS:Normal. IMPRESSION: No acute pulmonary findings. DATA REPOSITORY: RADIATION DOSE DELIVERED:
[2025-01-31 13:18] LABS: Troponin I 36 ng/L (<or=51)
[2025-01-31] MEDS: POTASSIUM CHLORIDE 20 MEQ/100 ML BAG 50 MEQ IV_INF (13:20)
[2025-01-31] MEDS: MAGNESIUM SULFATE 1 GM/100 ML BAG IV_INF (13:20)
[2025-01-31] MEDS: Potassium Chloride 20 MEQ TABCR 40 MEQ PO (13:46)
[2025-01-31] MEDS: Omnipaque 350 MG/ML 100 ML BTL IJ (14:03)
[2025-01-31] MEDS: Normal Saline - Diluent 50 ML VIAL IJ (14:03)
[2025-01-31 17:07] LABS: BUN 13 mg/dL (7-18); CREATININE 0.9 mg/dL (0.55-1.02); Calcium 9.1 mg/dL (8.5-10.1); Chloride 103 mmol/L (98-107); Estimated GFR 73.64 (mL/min/1.73m2); Glucose 89 mg/dL (74-106); Sodium 142 mmol/L (136-145)
== END 2025-01-31 20:38 | disposition home or self-care (01) ==
PROVIDERS: Registered Nurse Emergency; Emergency Provider Physician Assistant; PCP Nurse Practitioner Family
DX: E87.6 Hypokalemia (principal); I10 Essential (primary) hypertension; Z87.891 Personal history of nicotine dependence
CPT/HCPCS: 36415; 80048; 80053; 83690; 93005; 96365; 96366; 96368; 99285; 71046; 74177; 83735; 83880; 84484; 85025; 85379; 93010; J3475; J3480; J3490

== ENCOUNTER 2025-02-03 08:00 | Outpatient (CLI) | payer MEDICARE, MEDICAID, SELFPAY ==
--- NOTE | 2025-02-03 08:00 | RT.EKG_ITS ---
APPROVED REPORT Exam: Resting ECG Reason for Exam: baseline Patient Location: O HR:65 bpm ECG Measurements Heart Rate 65 AXIS AR 145 P 42 QRSd 95 QRS 26 QT 401 T 51 QTc 417 Conclusion Sinus rhythm...normal P axis, V-rate 50- 99 Low voltage, extremity leads...all extremity leads <0.5mV
== END 2025-02-03 08:01 | disposition home or self-care (01) ==
LOC: DI.CARD 08:05
PROVIDERS: PCP Nurse Practitioner Family; Referring Provider Nurse Practitioner Family; Visit Provider Registered Nurse
DX: I47.9 Paroxysmal tachycardia, unspecified (principal)
CPT/HCPCS: 93010

== ENCOUNTER → 2025-02-03 08:00 | Outpatient (BNVA) | payer MEDICARE, MEDICAID, SELFPAY | PROVIDERS: PCP Nurse Practitioner Family; Referring Provider Nurse Practitioner Family; Visit Provider Registered Nurse | DX: I47.9 Paroxysmal tachycardia, unspecified (principal); I47.10 Supraventricular tachycardia, unspecified; R07.9 Chest pain, unspecified; I10 Essential (primary) hypertension | CPT/HCPCS: 99215; 93005 ==

== ENCOUNTER 2025-02-09 12:52 | Outpatient (CLI) | payer MEDICARE, MEDICAID, SELFPAY ==
[2025-02-09 13:26] LABS: Potassium 3.7 mmol/L (3.5-5.1)
== END 2025-02-09 12:53 | disposition home or self-care (01) ==
LOC: LBO 12:53
PROVIDERS: PCP Nurse Practitioner Family; Visit Provider Nurse Practitioner Family
DX: E87.6 Hypokalemia (principal)
CPT/HCPCS: 36415; 84132

== ENCOUNTER 2025-02-11 01:41 | Outpatient (CLI) | payer MEDICARE, MEDICAID, SELFPAY ==
--- NOTE | 2025-02-11 06:45 | DI.NM_ITS ---
APPROVED REPORT Exam: Pharmacologic Patient Location: Out-Patient Room/Bed: Ordering Provider:CHAYA ORTIZ, Contact Number: BMI: 31.28 Baseline Rhythm: Sinus Bradycardia Indications: Chest pain Medical History Medical History: Hypokalemia, hx john, depression with anxiety, HTN, unspecified hysteria, paroxysmal tachycardia Cardiac Medications: Clorthalidone, diltiazem, gabapentin, losartan, potassium chloride, venlafaxine Allergies: Sulfa, seroquel, metoprolol, lisinopril/HCTZ Cardiac Risk Factors: Family hx, HTN, former smoker Previous Cardiac Procedures: Hx. ablation for cardiac arrhythmia Pretest Chest Pain Characteristics: 5/10 chest cramping (sternal area) Exercise History: Indeterminate Physical Disabilities: None Lung Sounds: Clear to auscultation Heart Sounds: Regular Stress Test Details Test: Pharmacologic stress was paired with low level exercise. Reason for pharmacologic stress test: Artifact. Nuclear Acquisition: Rest Tc-99m/Stress Tc-99m 1 day Rest Isotope: Tc-99m Sestamibi. Dose: 10.2 Date: 02/11/2025 Injection Time: 0920 Stress Isotope: Tc-99m Sestamibi. Dose: 30.8 Date: 02/11/2025 Injection Time: 1115 HR Resting HR Supine: 57 bpm Max Heart Rate (APMHR): 160 bpm Resting HR Standin bpm Target HR (85% APMHR): 136 bpm Max HR Achieved: 136 bpm % of APMHR: 85 Recovery HR: 81 bpm BP Resting BP Supine: 158/88 mmHg Resting BP Standin/88 mmHg Max BP: 192/92 mmHg Recovery BP: 148/78 mmHg ECG Resting ECG: Sinus Bradycardia Ectopy: None Stress ECG: Sinus Tachycardia ST Change: No significant ST segment changes noted Arrhythmia: None Recovery ECG: Sinus Rhythm Recovery ST Change: No significant ST segment changes noted Recovery Arrhythmia: None Clinical Stress Symptoms: Nausea Angina Score: None Rate Pressure Product: [id number] Stress ECG Conclusion 1. Resting electrocardiogram showed low voltage 2. Patient underwent testing using pharmacologic stress with regadenoson 3. Peak heart rate achieved was 85% of maximal predicted heart rate for age 4. There was no electrocardiographic evidence of myocardial ischemia 5. See MPI report Stress Test Summary STAGE HR BP SpO2 Symptoms NOTES Supine 57 158/88 98 Standing 63 148/88 1 min post Lexiscan injection 103 192/92 98 3 min post Lexiscan injection 98 174/82 98 6 min post Lexiscan injection 81 148/78 98 Patient c/o 5/10 chest cramping (mid sternal area) beginning of test. States this resolved prior to exercise attempt/ravi administration and did not reoccur. Unable to do Dion or walking ravi protocol r/t significant artifact with any patient movement and RN unable to read EKG. Patient met target HR with very little exertion prior to proceeding ot ravi protocol. Proceeded to laying ravi protocol. Patient c/o nausea. All symptoms resolved at end of recovery. Patient proceeded to imaging ambulatory in no apparent distress. MPI Conclusion Myocardial perfusion is normal. There is no ischemia or evidence of prior infarction Ejection fraction is 52% with normal wall motion
[2025-02-11] MEDS: Regadenoson 0.4 MG/5 ML SYR IVP (13:27)
== END 2025-02-11 02:01 ==
PROVIDERS: PCP Nurse Practitioner Family; Visit Provider Internal Medicine Cardiovascular Disease
DX: R07.9 Chest pain, unspecified (principal)
CPT/HCPCS: 78452; 93016; 93018; 93017; J2785

== ENCOUNTER 2025-02-25 00:51 | Outpatient (CLI) | payer MEDICARE, MEDICAID, SELFPAY ==
--- NOTE | 2025-02-25 07:30 | DI.US_ITS ---
APPROVED REPORT EXAM: Comprehensive 2D, Doppler, and color-flow Echocardiogram Patient Location: Out-Patient Personal Carer: Rebecca Puente RDCS (AE) Indications: SVT, Chest pain, HTN Other Information Study Quality: Good Conclusion Normal left-ventricular wall thickness and chamber size. Ejection fraction is 60%. Wall motion is normal Normal right ventricular size and function Mildly dilated left atrium. Normal right atrial size There are no structural valvular abnormalities Mild mitral regurgitation Mild to moderate tricuspid regurgitation. Estimated right ventricular systolic pressure is 25 mmHg Ascending aorta measures 3.73 cm Wall motion Left Ventricle The left ventricle is normal size. The left ventricular systolic function is normal. The left ventricular ejection fraction is within the normal range. There is normal left ventricular wall thickness. There is normal LV segmental wall motion. There is no ventricular septal defect visualized. LVEF is 60%. Right Ventricle The right ventricle is normal size. The right ventricular systolic function is normal. Atria Left atrium is mildly dilated. The right atrium size is normal. The interatrial septum is intact with no evidence for an atrial septal defect. Aortic Valve The aortic valve is normal in structure. Aortic valve is trileaflet. There is no aortic valvular stenosis. No aortic regurgitation is present. Mitral Valve The mitral valve is normal in structure. No evidence of mitral valve stenosis. Mild mitral regurgitation. Tricuspid Valve The tricuspid valve is normal in structure. There is no tricuspid valve stenosis. Mild to moderate tricuspid regurgitation. The RVSP is 24.6_ mmHg. Pulmonic Valve The pulmonary valve is normal in structure. There is no pulmonic valvular stenosis. Trace pulmonic regurgitation. Great Vessels The aortic root is normal in size. The ascending aorta is mildly dilated. Aortic arch is normal in caliber. IVC is normal in size and collapses >50% with inspiration. Pericardium There is no pericardial effusion. 2D Dimensions IVSD d PLAX 0.90 cm F: 0.6-1.0 Ao Root d 2.84 cm F: 2.7 - 3.3 LVPW d PLAX 0.90 cm F: 0.6 - 1.0 Ao Asc Diam d 3.73 cm F: 2.3 - 3.1 LVID d PLAX 4.50 cm F: 3.8 - 5.2 LVDs 3.10 cm F: 2.2 - 3.5 LV EF Teichholz 59.9 % FS 31.76 % LV EDV (Teich) 92.0 mL LV ESV (Teich) 36.9 mL M-Mode TAPSE 2.06 cm (M/F) >1.7 Auto EF LV EDV A4C 93.1 mL LV EDV A2C 118.4 mL LV EDV BP 111.7 mL LV ESV A4C 41.7 mL LV ESV A2C 47.8 mL LV ESV BP 46.0 mL LVEF(%) A4C 55.3 % LVEF(%) A2C 59.6 % LVEF(%) BP 58.8 % LV SV A4C 51.5 ml LV SV A2C 70.6 ml LV SV BP 65.7 ml LV CO A4C 3.0 L/min LV CO A2C 3.7 L/min LV CO BP 3.3 L/min HR A4C 57.88 BPM HR A2C 52.31 BPM LV EDV Index (BP) LA Volume LA Length A4C 5.4 cm LA Length A2C 5.0 cm LA Area A4C s 18.09 cm2 LA Area A2C s 17.33 cm2 LA Vol A4C A-L 51.84 mL LA Vol A2C A-L 51.07 mL LA Vol Biplane A-L 53.3 mL LA Vol/BSA A4C A-L LA Vol/BSA A2C A-L LA Vol/BSA BP A-L 27.6 mL/m2 LA Vol A4C MOD 48.4 mL LA Vol A2C MOD 48.2 mL LA Vol BP MOD 50.0 mL RA Volume RA Area A4C 13.7 cm2 RA ESV A4C (A-L) 35.1mL RA Vol/BSA A4C A-L RA Length A4C 4.5 cm RA ESV A4C (MOD) 33.4mL LV Diastology MV E' medial 0.085 (>0.07 m/s) MV E Vmax 0.88 (0.4-1.3 m/s) MV E/E' MED 10.43 (<14) MV A Vmax 0.65 (0.4-1.3 m/s) MV E' lateral 0.123 (>0.1 m/s) E/A Ratio 1.4 MV E/E' LAT 7.18 (<14) MV E' Average 0.104 m/s MV E/E'(average) 8.50 Aortic Valve AoV Vmax 1.33 m/s LVOT Vmax 1.02 m/s AoV Peak Grad 7.1 mmHg LVOT Peak Grad 4.1 mmHg AoV Area (Vmax) 2.11 cm2 LVOT VTI 0.250 m AoV VTI 0.334 m LVOT Mean Grad 2.2 mmHg AoV Mean Jayro. 0.98 m/s LVOT SV 69.13 mL AoV Mean Grad 4.2 mmHg LVOT Diam s 1.85 cm AoV Area (VTI) 2.07 cm2 AV Regurg Peak Gr. 7.12 mmHg Velocity Ratio 0.77 Mitral Valve MV DT 156 (160-240 msec) MV Vmax TIPS 0.79 m/s MV Mean Grad 0.8 (<2mmHg) MV VTI 0.298 m Pulmonary Valve PV Vmax 0.84 (0.5-1.5 m/s) RVOT Vmax 0.71 m/s PV Peak Grad 2.8 mmHg RVOT Peak Gr. 2.0 mmHg PV Mean Jayro 0.65 m/s RVOT VTI 0.183 m PV Mean Grad 1.8 mmHg RVOT Mean Gr. 1.2 mmHg Tricuspid Valve RA Pressure 3.00 mmHg TR Vmax 2.33 m/s TV S' 0.16 m/s TR Peak Grad 21.6 mmHg RVSP (TR) 24.6 mmHg
== END 2025-02-25 01:11 ==
PROVIDERS: PCP Nurse Practitioner Family; Visit Provider Registered Nurse
DX: I47.10 Supraventricular tachycardia, unspecified (principal); I36.0 Nonrheumatic tricuspid (valve) stenosis
CPT/HCPCS: 93306

== ENCOUNTER → 2025-03-10 09:32 | Outpatient (BNVA) | payer MEDICARE, MEDICAID, SELFPAY | PROVIDERS: PCP Nurse Practitioner Family; Referring Provider Nurse Practitioner Family; Visit Provider Registered Nurse | DX: I47.10 Supraventricular tachycardia, unspecified (principal); I10 Essential (primary) hypertension; R07.9 Chest pain, unspecified | CPT/HCPCS: 99214 ==

== ENCOUNTER 2025-03-12 01:33 | Outpatient (CLI) | payer MEDICARE, SELFPAY ==
--- NOTE | 2025-03-12 | DI.MAMMO_ITS ---
Exam(s) MAMMO SCREENING EXAM: MAMMO SCREENING CLINICAL HISTORY: SCREENING, Z12.31. TECHNIQUE: Bilateral full field digital CC and MLO mammographic images were obtained with 3D tomosynthesis and utilizing computer aided detection (CAD). COMPARISON: Prior mammograms were reviewed. FINDINGS: No new left breast findings. In the right breast on the MLO imaging there is a 5 mm nodule located 3 cm in from the nipple. This is unchanged from mammograms of 2021 and 2023. It appears slightly smaller than on the mammogram of 2016. There are no malignant- appearing microcalcification groups is region or elsewhere in either breast. There are no new spiculated masses nor new malignant appearing microcalcification groups. There is no significant architectural distortion nor skin thickening-retraction. IMPRESSION: Stable benign-appearing findings. No radiographic evidence of malignancy. BI-RADS Category 2 - Benign Findings Breast Density - Category B - There are scattered areas of fibroglandular density. Breast density Category C or D implies that the patient has dense breast tissue. Dense breast tissue can make it harder to find cancer on a mammogram. Dense breast tissue is also associated with an increased risk of breast cancer. This information about the result of the mammogram report was provided to the patient to raise their awareness. Use this report when you speak with the patient about their risks for breast cancer, which includes their family history. At that time, you may recommend additional screening tests (Ultrasound or MRI) as these tests may add significant information. A negative radiographic report should not delay biopsy if a dominant or clinically suspicious mass is present. Up to ten percent of cancers are not identified on mammography. A negative report may reinforce clinical impression. Adenosis and dense breasts may obscure an underlying neoplasm. False positive reports average 6 to 10%. Patient will receive a letter notifying them of these results.
== END 2025-03-12 01:53 ==
PROVIDERS: PCP Nurse Practitioner Family; Visit Provider Nurse Practitioner Family
DX: Z12.31 Encounter for screening mammogram for malignant neoplasm of breast (principal); R92.323 Mammographic fibroglandular density, bilateral breasts
CPT/HCPCS: 77063; 77067

== ENCOUNTER 2025-07-30 08:19 | Emergency (ER) | payer MEDICARE, SELFPAY ==
[2025-07-30 08:24] VITALS: BP 111/68; PULSE 75; RESP 16; TEMP 36.6; O2SAT 96
--- NOTE | 2025-07-30 08:30 | DI.RAD_ITS ---
Exam(s) XR KNEE RT 3V AP,LAT,AUGUSTUS EXAM: XR KNEE RT 3V AP,LAT,AUGUSTUS CLINICAL HISTORY: knee pain medial after twisting injury. TECHNIQUE: 2D digital imaging was performed of the right knee. Four views obtained. AP, lateral and PA tunnel views were obtained. COMPARISON: CR RIGHT KNEE 3 VIEWS from 06/14/2017 FINDINGS: BONES: No acute fracture is present. No bony destructive lesion is seen. JOINTS: The knee is normally aligned. There is a small joint effusion. There are small osteophytes at the posterior patella. SOFT TISSUE: Normal. IMPRESSION: 1. There is no acute fracture or dislocation. 2. Small joint effusion. If there is concern for internal injury, an MRI should be considered. DATA REPOSITORY: RADIATION DOSE DELIVERED:
--- NOTE | 2025-07-30 14:32 | W.ED.GENAD ---
Discharge Plan Disposition Patient Disposition: Home Condition: Stable Discharge Details Clinical Impression: Internal derangement of knee Primary Care Provider: Bety Musa ED Provider: Kristie Mcpherson Home Meds and New Rx's Prescriptions: Continued spironolactone 25 mg tablet 25 mg PO DAILY diltiazem HCl 120 mg capsule,extended release 12 hr 240 mg PO QAM diltiazem HCl 30 MG tablet 30 mg PO PRN MDD 240 Qty: 30 3RF Rx Instructions: Take 1-2 tabs if HR greater than 140 bpm for more than 10 min venlafaxine 75 mg capsule,extended release 24hr 75 mg PO DAILY Rx Instructions: 01/04/23 Per pcp notes takes with 37.5 mg for total 112.mg daily RH venlafaxine 37.5 mg capsule,extended release 24hr 37.5 mg PO DAILY Rx Instructions: 01/04/23 Per pcp notes takes with 75 mg for total 112.5mg daily RH losartan 100 mg tablet 100 mg PO DAILY chlorthalidone 25 mg tablet 25 mg PO DAILY Discharge Instructions Instructions: Internal Derangement of the Knee (DC) Additional Instructions: Take Motrin and Tylenol as needed for pain You may apply Voltaren or Motrin gel topically Keep your brace in place during the day Follow-up with orthopedics, you likely have a injury to your medial collateral ligament or meniscus with some fluid in your knee Apply ice and rest Return with Swelling, worsening pain, redness, or should any new concerns arise Stand Alone Forms: Portal Information Referrals: Issac Márquez MD [ [facility] STAFF PHYSICIAN, Orthopaedic Surgical] HPI General Date/Time Provider Initiated Documentation: 07/30/25 08:37. HPI Narrative: 60-year-old female with history of hypertension and john presents with report of injury to right knee. She slipped yesterday and her back leg twisted behind her. She felt a pop in the medial aspect of her knee and has had pain with walking since that time. She states her knee feels slightly unsteady. Full extension exacerbates her symptoms. She denies any hip tenderness, head injury, or ankle pain associated. She denies any history of coagulopathy or any additional acquired injuries Related Data Home Medications ?Medication ?Instructions ?Recorded ?Confirmed diltiazem HCl 30 mg tablet 30 mg PO PRN #30 tab-caps 10/31/17 03/10/25 venlafaxine 37.5 mg 37.5 mg PO DAILY 01/04/23 03/10/25 capsule,extended release 24 hr venlafaxine 75 mg capsule,extended 75 mg PO DAILY 01/04/23 03/10/25 release 24 hr chlorthalidone 25 mg tablet 25 mg PO DAILY 12/01/24 02/03/25 losartan 100 mg tablet 100 mg PO DAILY 02/01/25 03/10/25 diltiazem HCl 120 mg 240 mg PO QAM 03/10/25 03/10/25 capsule,extended release 12 hr spironolactone 25 mg tablet 25 mg PO DAILY 03/10/25 03/10/25 Previous Rx's ?Medication ?Instructions ?Recorded diltiazem HCl 30 mg tablet 30 mg PO PRN #30 tab-caps 10/31/17 Allergies Allergy/AdvReac Type Severity Reaction Status Date / Time Sulfa (Sulfonamide Allergy Intermediate Hives Unverified 03/10/25 09:39 Antibiotics) quetiapine (From Seroquel) AdvReac Unknown Unknown Unverified 03/10/25 09:39 metoprolol AdvReac fatigue Unverified 03/10/25 09:39 lisinopril/hctz AdvReac Unknown Other (See Uncoded 03/10/25 09:39 Comment) General Stated Complaint: Orthopedic GARCIA: 4 Exam Narrative Exam Narrative: Alert and oriented 60-year-old female in no acute distress, right medial tenderness, small effusion, no laxity appreciated, no erythema, no tenderness to right hip no tenderness to right ankle neurovascularly intact Course Vital Signs Vital signs: Vital Signs Temperature 36.6 C 07/30/25 08:24 Pulse 75 07/30/25 08:24 Respiratory Rate 16 07/30/25 08:24 Blood Pressure 111/68 07/30/25 08:24 Pulse Oximetry 96 07/30/25 08:24 Temperature 36.6 C 07/30/25 08:24 Temperature Source Oral 07/30/25 08:24 Pulse 75 07/30/25 08:24 Respiratory Rate 16 07/30/25 08:24 Blood Pressure 111/68 07/30/25 08:24 Blood Pressure Position Sitting 07/30/25 08:24 Pulse Oximetry 96 07/30/25 08:24 Oxygen Delivery Method Room Air 07/30/25 08:24 Oxygen Flow Rate 0 07/30/25 08:24 Pain Level 8 07/30/25 08:24 Medical Decision Making Results: X-ray of patient's right knee shows effusion Assessment and plan: 60-year-old female presenting with knee injury, placed in hinged knee brace immobilizer secondary to effusion likely secondary to internal derangement of knee. Patient will be referred to orthopedics for reassessment in 1 week. Motrin and Tylenol encouraged, topical Motrin gel. Ice and rest. Return precautions reviewed and patient expressed understanding PFSH All Active Problems (Updated 07/30/25 @ 10:18 by PHIL Flores) Internal derangement of knee (Acute) History of john (Acute) Depression with anxiety (Acute) Colon cancer high risk (Acute) 01/04/23 PCP problem list states colon CA no resection frequent surveillance RH HTN (hypertension) with goal to be determined (Acute) Medical History (Updated 07/30/25 @ 10:18 by PHIL Flores) Hysteria, unspecified Paroxysmal tachycardia Surgical History (Updated 01/04/23 @ 14:56 by Kalin Stearns RN) History of radiofrequency ablation procedure for cardiac arrhythmia Social History Smoking/Tobacco Use Status: Former Tobacco Use Quit Date: 08/12/98 Smoking risk assessment performed?: Yes Alcohol Intake: never Drug use: Never Substance use type: does not use Do you feel safe at home: Yes Do you feel safe in your relationship?: Yes
--- NOTE | 2025-07-31 08:45 | NUR.NOTE ---
Access chart to print the demographic sheet for [facility] billing requisition. Nursing Note:
== END 2025-07-30 18:22 | disposition home or self-care (01) ==
PROVIDERS: Emergency Provider Physician Assistant; PCP Nurse Practitioner Family
DX: M23.91 Unspecified internal derangement of right knee (principal); W01.0XXA Fall on same level from slipping, tripping and stumbling without subsequent striking against object, initial encounter
CPT/HCPCS: 99283 ×2; 29505; 73562

== ENCOUNTER 2025-08-02 12:58 | Outpatient (REF) | payer MEDICARE, SELFPAY ==
[2025-08-02 15:19] LABS: HCT 41.5 % (36.0-46.0); HGB 13.6 g/dL (11.2-15.7); MCH 29.8 pg (27.0-33.0); MCHC 32.8 % (32.0-36.0); MCV 91 fL (80-95); MPV 11.8 fL (8.0-11.0); Platelet Count 268 10^3/uL (130-400); RBC 4.57 10^6/uL (3.93-5.22); RDW 12.9 % (11.7-14.6); RDW-SD 42.7 fL; WBC 6.88 10^3/uL (4.4-10.8)
[2025-08-02 15:36] LABS: ALT 20 U/L (10-49); AST 22 U/L (<34); Albumin 4.5 g/dL (3.2-5.0); Alkaline Phosphatase 103 U/L (46-116); Anion Gap 10.1 mmol/L (3-11); BUN 17 mg/dL (9-23); Bilirubin, Total 1.0 mg/dL (0.2-1.2); CO2 28.9 mmol/L (20.0-31.0); Calcium 10.1 mg/dL (8.3-10.6); Chloride 105 mmol/L (98-107); Cholesterol 215 mg/dL (<200); Glucose 84 mg/dL (74-106); HDL Cholesterol 71 mg/dL (>or=50); Potassium 4.2 mmol/L (3.5-5.1); Sodium 144 mmol/L (136-145); Total Protein 7.5 g/dL (5.7-8.2)
[2025-08-02 15:38] LABS: Hemoglobin A1C 5.3 % (<5.7)
[2025-08-02 15:39] LABS: Vitamin D 25 Total 20 ng/mL (30-100)
== END 2025-08-02 12:59 | disposition home or self-care (01) ==
LOC: NCHCN 12:58
PROVIDERS: PCP Nurse Practitioner Family
DX: Z13.1 Encounter for screening for diabetes mellitus (principal); I10 Essential (primary) hypertension; Z13.21 Encounter for screening for nutritional disorder
CPT/HCPCS: 80053; 80061; 82306; 85027; 83036